=== PATIENT | female | born 1935 | race African-American/Black ===

== ENCOUNTER 2020-08-25 23:23 | Inpatient (IN) ==
[2020-08-26 00:20] LABS: INR 1.4; PT Patient Result 14.6 SECS (9.8-11.9); Partial Thromboplastin Time 27.7 SECS (23.9-33.8)
[2020-08-26 00:30] LABS: Bilirubin,Total 0.4 MG/DL (0.2-1.0); Calcium 9.2 MG/DL (8.5-10.1); Osmolality,Calculated 283.1 MOS/KG (273-304); Potassium 4.8 MMOL/L (3.5-5.1); Total Protein 7.5 G/DL (6.4-8.3)
[2020-08-26] MEDS: MORPHINE 4 MG/1 ML VIAL IV PRN ×3 (00:57→15:22)
[2020-08-26] MEDS ORDERED: DEXTROSE 5% 1,000 ML IV SCH (01:00)
[2020-08-26 01:07] LABS: Basophils % 0.2 % (0.0-0.8); Hematocrit 45.2 VOL% (35.7-47.0); Hemoglobin 14.7 GM/DL (12.0-16.0); Immature Granulocytes % 1.3 %; Immature Granulocytes Absolute 0.07 #; Lymphocytes # 0.6 10*3/uL (1.4-4.0); Lymphocytes % 10.1 % (21.3-54.2); Mean Corpuscular HGB Conc 32.5 GM/DL (32-36); Mean Corpuscular Volume 86.8 FL (87-102); Mean Platelet Volume 10.1 FL (9.6-12.0); Monocytes % 12.8 % (1.7-12.7); Neutrophils % 75.6 % (38.7-73.9); Platelet Count 220 T/CUMM (130-400); Red Blood Count 5.21 MC/CUMM (3.8-5.5); Red Cell Distribution Width 15.9 % (9.3-17.3); White Blood Count 5.5 T/CUMM (4-12)
[2020-08-26 06:58] LABS: Basophils % 0.1 % (0.0-0.8); Hematocrit 43.6 VOL% (35.7-47.0); Hemoglobin 14.3 GM/DL (12.0-16.0); Immature Granulocytes % 1.2 %; Lymphocytes % 11.5 % (21.3-54.2); Mean Corpuscular HGB Conc 32.8 GM/DL (32-36); Mean Corpuscular Volume 86.5 FL (87-102); Neutrophils % 75.2 % (38.7-73.9); Platelet Count 203 T/CUMM (130-400); Red Blood Count 5.04 MC/CUMM (3.8-5.5); White Blood Count 8.5 T/CUMM (4-12)
[2020-08-26] MEDS ORDERED: ceFAZolin 2,000 MG in PREMIX 1 EACH IV ONE (07:28)
[2020-08-26 07:29] LABS: Albumin 2.8 G/DL (3.4-5.0); Bilirubin,Total 1.4 MG/DL (0.2-1.0); Calcium 9.1 MG/DL (8.5-10.1); Osmolality,Calculated 284.8 MOS/KG (273-304); Potassium 4.3 MMOL/L (3.5-5.1)
[2020-08-26] MEDS ORDERED: fentaNYL 100 MCG/2 ML VIAL ONE ×2 (08:53→09:47)
[2020-08-26] MEDS ORDERED: DEXAMETHASONE 4 MG/1 ML VIAL ONE ×2 (09:23)
[2020-08-26] MEDS ORDERED: ONDANSETRON 4 MG/2 ML VIAL ONE (09:25)
[2020-08-26] MEDS ORDERED: propofoL 200 MG/20 ML VIAL IV ONE (09:27)
[2020-08-26] MEDS ORDERED: GLUCAGON 1 MG VIAL IM PRN (09:28)
[2020-08-26] MEDS ORDERED: DEXTROSE 50% 25 GM/50 ML VIAL IV PRN (09:28)
[2020-08-26] MEDS ORDERED: MAGNESIUM HYDROXIDE SUSP 30 ML UDCUP PO PRN (09:29)
[2020-08-26] MEDS ORDERED: MORPHINE 4 MG/1 ML VIAL IV PRN (09:29)
[2020-08-26] MEDS ORDERED: PHENYLEPHRINE 10 MG/1 ML VIAL IV ONE (09:40)
[2020-08-26] MEDS ORDERED: GLYCOPYRROLATE 0.4 MG/2 ML VIAL ONE (09:43)
[2020-08-26] MEDS ORDERED: BACITRACIN OINT 0.9 GM PACK TOP ONE (09:44)
[2020-08-26] MEDS ORDERED: TRANEXAMIC ACID 1,000 MG/10 ML VIAL ONE (09:46)
[2020-08-26] MEDS ORDERED: LIDOCAINE 2% 5 ML VIAL ONE (09:46)
[2020-08-26] MEDS ORDERED: ETOMIDATE 40 MG/20 ML VIAL IV ONE (09:46)
[2020-08-26] MEDS ORDERED: SUCCINYLCHOLINE 200 MG/10 ML VIAL ONE (09:46)
[2020-08-26] MEDS ORDERED: ACETAMINOPHEN 1,000 MG/100 ML VIAL IV ONE (09:50)
[2020-08-26] MEDS ORDERED: SEVOFLURANE 1 UNIT/15 MINUTE INH ONE (10:16)
[2020-08-26] MEDS: LACTATED RINGERS 1,000 ML IV SCH ×2 (12:17→22:02)
[2020-08-26] MEDS: PANTOPRAZOLE 40 MG VIAL IV SCH (12:17)
[2020-08-26] MEDS: INSULIN LISPRO 100 UNIT/ML SUBCUT SCH ×3 (12:21→22:05)
[2020-08-26] MEDS: ONDANSETRON 4 MG/2 ML VIAL IV PRN ×2 (12:22→18:15)
[2020-08-26] MEDS: ceFAZolin 2,000 MG in PREMIX 1 EACH IV SCH (14:06)
[2020-08-26] MEDS: DOCUSATE SODIUM 100 MG CAPSULE PO SCH (22:03)
[2020-08-26] MEDS: POTASSIUM CHLORIDE 20 MEQ TABLET PO SCH (22:05)
[2020-08-26] MEDS: MEGESTROL 400 MG/10 ML UDCUP PO SCH (22:05)
[2020-08-27] MEDS: ceFAZolin 2,000 MG in PREMIX 1 EACH IV SCH (00:17)
[2020-08-27 06:00] LABS: Hematocrit 36.4 VOL% (35.7-47.0); Hemoglobin 11.5 GM/DL (12.0-16.0); Immature Granulocytes % 0.6 %; Immature Granulocytes Absolute 0.07 #; Lymphocytes # 0.7 10*3/uL (1.4-4.0); Lymphocytes % 6.4 % (21.3-54.2); Mean Corpuscular HGB Conc 31.6 GM/DL (32-36); Mean Corpuscular Volume 88.3 FL (87-102); Mean Platelet Volume 10.5 FL (9.6-12.0); Platelet Count 179 T/CUMM (130-400); Red Blood Count 4.12 MC/CUMM (3.8-5.5); Red Cell Distribution Width 16.1 % (9.3-17.3)
[2020-08-27 06:29] LABS: Calcium 8.1 MG/DL (8.5-10.1); Thyroid Stimulating Hormone 0.412 uIU/ml (0.358-3.74)
[2020-08-27] MEDS: LACTATED RINGERS 1,000 ML IV SCH ×2 (07:32→18:10)
[2020-08-27] MEDS: INSULIN LISPRO 100 UNIT/ML SUBCUT SCH ×4 (08:29→20:57)
[2020-08-27] MEDS ORDERED: LANSOPRAZOLE 30 MG PO SCH (09:00)
[2020-08-27] MEDS: METOPROLOL SUCCINATE XL 25 MG TABLET PO SCH (10:24)
[2020-08-27] MEDS: TRIAMTERENE/HCTZ 37.5-25 MG TABLET PO SCH (10:24)
[2020-08-27] MEDS: LEVOTHYROXINE 25 MCG TABLET PO SCH (10:24)
[2020-08-27] MEDS: MEGESTROL 400 MG/10 ML UDCUP PO SCH ×2 (10:24→20:54)
[2020-08-27] MEDS: amLODIPine 10 MG TABLET PO SCH (10:25)
[2020-08-27] MEDS: DOCUSATE SODIUM 100 MG CAPSULE PO SCH ×2 (10:25→20:54)
[2020-08-27] MEDS: APIXABAN 2.5 MG TABLET PO SCH ×2 (10:25→20:54)
[2020-08-27] MEDS: POTASSIUM CHLORIDE 20 MEQ TABLET PO SCH ×2 (10:25→20:54)
[2020-08-27] MEDS: predniSONE 10 MG TABLET PO SCH (10:26)
[2020-08-27] MEDS: PANTOPRAZOLE 40 MG VIAL IV SCH (10:29)
[2020-08-28] MEDS: LACTATED RINGERS 1,000 ML IV SCH ×3 (03:50→23:03)
[2020-08-28 05:43] LABS: Basophils % 0.1 % (0.0-0.8); Hematocrit 30.7 VOL% (35.7-47.0); Hemoglobin 10.2 GM/DL (12.0-16.0); Immature Granulocytes Absolute 0.09 #; Lymphocytes # 0.9 10*3/uL (1.4-4.0); Mean Corpuscular HGB Conc 33.2 GM/DL (32-36); Mean Corpuscular Volume 86.2 FL (87-102); Mean Platelet Volume 10.4 FL (9.6-12.0); Monocytes % 11.5 % (1.7-12.7); NRBC # 0.03 10*3/uL; Neutrophils % 77.4 % (38.7-73.9); Platelet Count 141 T/CUMM (130-400); Red Blood Count 3.56 MC/CUMM (3.8-5.5); Red Cell Distribution Width 15.8 % (9.3-17.3)
[2020-08-28] MEDS: LEVOTHYROXINE 25 MCG TABLET PO SCH (06:01)
[2020-08-28 06:12] LABS: Osmolality,Calculated 273.1 MOS/KG (273-304); Potassium 4.5 MMOL/L (3.5-5.1)
[2020-08-28] MEDS: INSULIN LISPRO 100 UNIT/ML SUBCUT SCH ×4 (08:34→22:41)
[2020-08-28] MEDS: MEGESTROL 400 MG/10 ML UDCUP PO SCH ×2 (10:05→22:38)
[2020-08-28] MEDS: predniSONE 10 MG TABLET PO SCH (10:06)
[2020-08-28] MEDS: DOCUSATE SODIUM 100 MG CAPSULE PO SCH ×2 (10:06→22:38)
[2020-08-28] MEDS: METOPROLOL SUCCINATE XL 25 MG TABLET PO SCH (10:06)
[2020-08-28] MEDS: amLODIPine 10 MG TABLET PO SCH (10:06)
[2020-08-28] MEDS: TRIAMTERENE/HCTZ 37.5-25 MG TABLET PO SCH (10:06)
[2020-08-28] MEDS: POTASSIUM CHLORIDE 20 MEQ TABLET PO SCH ×2 (10:06→22:38)
[2020-08-28] MEDS: APIXABAN 2.5 MG TABLET PO SCH ×2 (10:06→22:38)
[2020-08-28] MEDS: PANTOPRAZOLE 40 MG VIAL IV SCH (10:11)
[2020-08-28] MEDS: MORPHINE 4 MG/1 ML VIAL IV PRN (18:28)
[2020-08-29] MEDS: LEVOTHYROXINE 25 MCG TABLET PO SCH (06:13)
[2020-08-29] MEDS: TRIAMTERENE/HCTZ 37.5-25 MG TABLET PO SCH (08:30)
[2020-08-29] MEDS: DOCUSATE SODIUM 100 MG CAPSULE PO SCH ×2 (08:30→20:20)
[2020-08-29] MEDS: predniSONE 10 MG TABLET PO SCH (08:30)
[2020-08-29] MEDS: METOPROLOL SUCCINATE XL 25 MG TABLET PO SCH (08:30)
[2020-08-29] MEDS: APIXABAN 2.5 MG TABLET PO SCH ×2 (08:31→20:20)
[2020-08-29] MEDS: POTASSIUM CHLORIDE 20 MEQ TABLET PO SCH ×2 (08:31→20:20)
[2020-08-29] MEDS: amLODIPine 10 MG TABLET PO SCH (08:31)
[2020-08-29] MEDS: PANTOPRAZOLE 40 MG VIAL IV SCH (08:33)
[2020-08-29] MEDS: INSULIN LISPRO 100 UNIT/ML SUBCUT SCH ×4 (08:56→20:21)
[2020-08-29] MEDS: MEGESTROL 400 MG/10 ML UDCUP PO SCH ×2 (10:17→20:20)
[2020-08-29] MEDS: LACTATED RINGERS 1,000 ML IV SCH (10:19)
[2020-08-30 05:33] LABS: Eosinophils # 0.1 10*3/uL (0.0-0.87); Eosinophils % 0.7 % (0.00-10.9); Hematocrit 29.9 VOL% (35.7-47.0); Hemoglobin 9.5 GM/DL (12.0-16.0); Immature Granulocytes % 0.7 %; Immature Granulocytes Absolute 0.06 #; Lymphocytes # 0.9 10*3/uL (1.4-4.0); Lymphocytes % 10.3 % (21.3-54.2); Mean Corpuscular HGB Conc 31.8 GM/DL (32-36); Mean Corpuscular Volume 89.3 FL (87-102); Mean Platelet Volume 10.5 FL (9.6-12.0); Monocytes % 10.1 % (1.7-12.7); Neutrophils % 78.2 % (38.7-73.9); Platelet Count 171 T/CUMM (130-400); Red Blood Count 3.35 MC/CUMM (3.8-5.5); Red Cell Distribution Width 16.3 % (9.3-17.3); White Blood Count 8.9 T/CUMM (4-12)
[2020-08-30 05:50] LABS: Calcium 8.5 MG/DL (8.5-10.1); Osmolality,Calculated 267.4 MOS/KG (273-304); Potassium 4.4 MMOL/L (3.5-5.1)
[2020-08-30] MEDS: LEVOTHYROXINE 25 MCG TABLET PO SCH (06:00)
[2020-08-30] MEDS: INSULIN LISPRO 100 UNIT/ML SUBCUT SCH ×2 (07:12→11:03)
[2020-08-30] MEDS ORDERED: APIXABAN 5 MG TABLET PO SCH (09:00)
[2020-08-30] MEDS: TRIAMTERENE/HCTZ 37.5-25 MG TABLET PO SCH (09:13)
[2020-08-30] MEDS: DOCUSATE SODIUM 100 MG CAPSULE PO SCH (09:13)
[2020-08-30] MEDS: POTASSIUM CHLORIDE 20 MEQ TABLET PO SCH (09:13)
[2020-08-30] MEDS: METOPROLOL SUCCINATE XL 25 MG TABLET PO SCH (09:13)
[2020-08-30] MEDS: MEGESTROL 400 MG/10 ML UDCUP PO SCH (09:14)
[2020-08-30] MEDS: predniSONE 10 MG TABLET PO SCH (09:14)
[2020-08-30] MEDS: amLODIPine 10 MG TABLET PO SCH (09:14)
[2020-08-30] MEDS: PANTOPRAZOLE 40 MG VIAL IV SCH (09:20)
[2020-08-30] MEDS ORDERED: SKIN HEALING OINT (AQUAPHOR) 50 GM TUBE TOP SCH (11:00)
[2020-08-30 11:36] VITALS: BP 113/62
== END 2020-08-30 16:23 | disposition swing bed (61) | DRG 482 ==
LOC: EDBD → EDUNIT# → N.ED 23:23 → N.EDINP 08-26 00:36 → N.3E 08-26 02:44
PROVIDERS: ADMIT Family Medicine; ATTEND Family Medicine

== ENCOUNTER 2020-09-27 09:10 | Inpatient (IN) ==
[2020-09-27 11:44] LABS: Basophils % 0.3 % (0.0-0.8); Eosinophils # 0.1 10*3/uL (0.0-0.87); Eosinophils % 0.9 % (0.00-10.9); Hematocrit 42.5 VOL% (35.7-47.0); Hemoglobin 13.2 GM/DL (12.0-16.0); Immature Granulocytes % 1.5 %; Lymphocytes # 0.5 10*3/uL (1.4-4.0); Lymphocytes % 7.2 % (21.3-54.2); Mean Corpuscular HGB Conc 31.1 GM/DL (32-36); Mean Corpuscular Volume 96.2 FL (87-102); Mean Platelet Volume 9.1 FL (9.6-12.0); Monocytes % 8.1 % (1.7-12.7); Platelet Count 189 T/CUMM (130-400); Red Blood Count 4.42 MC/CUMM (3.8-5.5); Red Cell Distribution Width 19.2 % (9.3-17.3); White Blood Count 6.6 T/CUMM (4-12)
[2020-09-27 12:07] LABS: Albumin 2.5 G/DL (3.4-5.0); Calcium 8.8 MG/DL (8.5-10.1); Osmolality,Calculated 273.1 MOS/KG (273-304); Potassium 4.6 MMOL/L (3.5-5.1); Total Protein 6.6 G/DL (5.0-7.5)
[2020-09-27] MEDS ORDERED: GLUCAGON 1 MG VIAL IM PRN (12:16)
[2020-09-27] MEDS ORDERED: DEXTROSE 50% 25 GM/50 ML VIAL IV PRN (12:16)
[2020-09-27 12:26] LABS: Bacteria,Urine Occasional /HPF (Few); Bilirubin,Urine Negative (Negative); Blood, Urine Large mg/dL (Negative); Glucose,Urine (UA) Negative (Negative); Ketones,Urine Negative (Negative); Mucus,Urine Occasional /LPF (Occasional); Nitrite,Urine Negative (Negative); Protein,Urine 30 MG/DL; RBC,Urine 57 /HPF (0-4); Squamous Epithelial Cell,Urine Few /HPF (0-10); Urine Appearance CLEAR (Clear); Urine Color Yellow (Yellow); Urine Specific Gravity 1.021 (1.001-1.035); Urine Urobilinogen < 2.0 EU/DL (0.2-1.0); WBC,Urine 2 /HPF (0-6)
[2020-09-27] MEDS: NYSTATIN 500,000 UNIT/5 ML UDCUP PO SCH ×3 (13:28→20:43)
[2020-09-27] MEDS: VANCOMYCIN INJ 750 MG in SODIUM CHLORIDE 0.9% 250 ML IV SCH (13:28)
[2020-09-27] MEDS: INSULIN LISPRO 100 UNIT/ML SUBCUT SCH ×2 (16:25→21:31)
[2020-09-27] MEDS: MEGESTROL 400 MG/10 ML UDCUP PO SCH (20:43)
[2020-09-27] MEDS: DOCUSATE SODIUM 100 MG CAPSULE PO SCH (20:43)
[2020-09-27] MEDS: LACTATED RINGERS 1,000 ML IV SCH (20:43)
[2020-09-27] MEDS: PIPERACILLIN/TAZOBACTAM 3,375 MG in SODIUM CHLORIDE 0.9% 100 ML IV SCH (20:43)
[2020-09-27] MEDS: TRIAMCINOLONE 0.1% CREAM 15 GM TUBE TOP SCH (21:32)
[2020-09-28 05:16] LABS: Basophils % 0.4 % (0.0-0.8); Eosinophils # 0.1 10*3/uL (0.0-0.87); Eosinophils % 1.4 % (0.00-10.9); Hematocrit 40.9 VOL% (35.7-47.0); Hemoglobin 12.8 GM/DL (12.0-16.0); Immature Granulocytes % 2.1 %; Lymphocytes # 0.7 10*3/uL (1.4-4.0); Lymphocytes % 14.5 % (21.3-54.2); Mean Corpuscular HGB Conc 31.3 GM/DL (32-36); Mean Corpuscular Volume 95.6 FL (87-102); Mean Platelet Volume 9.3 FL (9.6-12.0); Monocytes % 8.7 % (1.7-12.7); Neutrophils % 72.9 % (38.7-73.9); Platelet Count 160 T/CUMM (130-400); Red Blood Count 4.28 MC/CUMM (3.8-5.5); Red Cell Distribution Width 19.6 % (9.3-17.3); White Blood Count 4.8 T/CUMM (4-12)
[2020-09-28] MEDS: PIPERACILLIN/TAZOBACTAM 3,375 MG in SODIUM CHLORIDE 0.9% 100 ML IV SCH ×3 (05:27→21:40)
[2020-09-28 05:59] LABS: Albumin 2.3 G/DL (3.4-5.0); Calcium 8.7 MG/DL (8.5-10.1); Potassium 4.3 MMOL/L (3.5-5.1); Thyroid Stimulating Hormone 2.04 uIU/ml (0.358-3.74); Total Protein 5.9 G/DL (5.0-7.5)
[2020-09-28] MEDS: PANTOPRAZOLE 40 MG TABLET PO SCH (07:54)
[2020-09-28] MEDS: INSULIN LISPRO 100 UNIT/ML SUBCUT SCH ×4 (07:55→21:39)
[2020-09-28] MEDS: LEVOTHYROXINE 25 MCG TABLET PO SCH (07:55)
[2020-09-28] MEDS ORDERED: ZALEPLON 5 MG CAPSULE PO PRN (07:58)
[2020-09-28] MEDS: DEXTROSE 5% LACTATED RINGERS 1,000 ML IV SCH (09:30)
[2020-09-28] MEDS: VANCOMYCIN INJ 750 MG in SODIUM CHLORIDE 0.9% 250 ML IV SCH (09:36)
[2020-09-28] MEDS ORDERED: LIDOCAINE 2% 5 ML VIAL ONE (12:10)
[2020-09-28] MEDS ORDERED: fentaNYL 100 MCG/2 ML VIAL ONE (12:10)
[2020-09-28] MEDS ORDERED: propofoL 200 MG/20 ML VIAL IV ONE (12:10)
[2020-09-28] MEDS ORDERED: DEXAMETHASONE 4 MG/1 ML VIAL ONE (12:10)
[2020-09-28] MEDS ORDERED: SEVOFLURANE 1 UNIT/15 MINUTE INH ONE ×4 (12:10→13:41)
[2020-09-28] MEDS ORDERED: ONDANSETRON 4 MG/2 ML VIAL ONE (12:10)
[2020-09-28] MEDS: DOCUSATE SODIUM 100 MG CAPSULE PO SCH ×2 (12:22→21:37)
[2020-09-28] MEDS: NYSTATIN 500,000 UNIT/5 ML UDCUP PO SCH ×4 (12:22→21:38)
[2020-09-28] MEDS: POTASSIUM CHLORIDE 20 MEQ TABLET PO SCH (12:22)
[2020-09-28] MEDS: MEGESTROL 400 MG/10 ML UDCUP PO SCH ×2 (12:22→21:38)
[2020-09-28] MEDS: predniSONE 10 MG TABLET PO SCH (12:22)
[2020-09-28] MEDS: METOPROLOL SUCCINATE XL 25 MG TABLET PO SCH (12:23)
[2020-09-28] MEDS: LACTATED RINGERS 1,000 ML IV SCH (12:24)
[2020-09-28] MEDS ORDERED: LACTATED RINGERS 1,000 ML IV SCH (13:00)
[2020-09-28] MEDS ORDERED: PHENYLEPHRINE 1 MG/10 ML SYRINGE IV ONE (13:41)
[2020-09-28] MEDS ORDERED: MORPHINE 4 MG/1 ML VIAL IV PRN (13:46)
[2020-09-28] MEDS: MENTHOL/ZINC OXIDE OINT 71 GM JAR TOP SCH ×2 (16:48→21:38)
[2020-09-28] MEDS: TRIAMCINOLONE 0.1% CREAM 15 GM TUBE TOP SCH ×2 (17:50→21:38)
[2020-09-29] MEDS: DEXTROSE 5% LACTATED RINGERS 1,000 ML IV SCH ×5 (04:57→19:53)
[2020-09-29] MEDS: VANCOMYCIN INJ 1,000 MG in SODIUM CHLORIDE 0.9% 250 ML IV SCH (06:09)
[2020-09-29] MEDS: LEVOTHYROXINE 25 MCG TABLET PO SCH (06:10)
[2020-09-29] MEDS: PANTOPRAZOLE 40 MG TABLET PO SCH (06:10)
[2020-09-29] MEDS: INSULIN LISPRO 100 UNIT/ML SUBCUT SCH ×4 (08:26→23:38)
[2020-09-29] MEDS: PIPERACILLIN/TAZOBACTAM 3,375 MG in SODIUM CHLORIDE 0.9% 100 ML IV SCH ×3 (09:57→23:41)
[2020-09-29] MEDS: POTASSIUM CHLORIDE 20 MEQ TABLET PO SCH (09:58)
[2020-09-29] MEDS: amLODIPine 5 MG TABLET PO SCH (09:58)
[2020-09-29] MEDS: METOPROLOL SUCCINATE XL 25 MG TABLET PO SCH (09:58)
[2020-09-29] MEDS: MEGESTROL 400 MG/10 ML UDCUP PO SCH ×2 (09:59→21:55)
[2020-09-29] MEDS: DOCUSATE SODIUM 100 MG CAPSULE PO SCH ×2 (09:59→21:55)
[2020-09-29] MEDS: predniSONE 10 MG TABLET PO SCH (09:59)
[2020-09-29] MEDS: NYSTATIN 500,000 UNIT/5 ML UDCUP PO SCH ×4 (09:59→21:55)
[2020-09-29] MEDS: TRIAMCINOLONE 0.1% CREAM 15 GM TUBE TOP SCH ×2 (10:00→21:50)
[2020-09-29] MEDS: MENTHOL/ZINC OXIDE OINT 71 GM JAR TOP SCH ×2 (10:00→21:55)
[2020-09-30] MEDS: VANCOMYCIN INJ 1,000 MG in SODIUM CHLORIDE 0.9% 250 ML IV SCH (05:25)
[2020-09-30] MEDS: LEVOTHYROXINE 25 MCG TABLET PO SCH (05:33)
[2020-09-30] MEDS: PANTOPRAZOLE 40 MG TABLET PO SCH (05:33)
[2020-09-30 06:06] LABS: Basophils % 0.2 % (0.0-0.8); Eosinophils # 0.1 10*3/uL (0.0-0.87); Eosinophils % 1.1 % (0.00-10.9); Hematocrit 37.2 VOL% (35.7-47.0); Hemoglobin 11.4 GM/DL (12.0-16.0); Immature Granulocytes % 3.2 %; Immature Granulocytes Absolute 0.14 #; Lymphocytes # 0.5 10*3/uL (1.4-4.0); Lymphocytes % 11.9 % (21.3-54.2); Mean Corpuscular HGB Conc 30.6 GM/DL (32-36); Mean Corpuscular Volume 97.6 FL (87-102); Mean Platelet Volume 9.3 FL (9.6-12.0); Monocytes % 6.9 % (1.7-12.7); Neutrophils % 76.7 % (38.7-73.9); Platelet Count 160 T/CUMM (130-400); Red Blood Count 3.81 MC/CUMM (3.8-5.5); White Blood Count 4.4 T/CUMM (4-12)
[2020-09-30 06:31] LABS: Calcium 7.8 MG/DL (8.5-10.1); Osmolality,Calculated 274.7 MOS/KG (273-304); Potassium 3.7 MMOL/L (3.5-5.1)
[2020-09-30] MEDS: METOPROLOL SUCCINATE XL 25 MG TABLET PO SCH (08:30)
[2020-09-30] MEDS: MEGESTROL 400 MG/10 ML UDCUP PO SCH ×2 (08:30→22:17)
[2020-09-30] MEDS: NYSTATIN 500,000 UNIT/5 ML UDCUP PO SCH ×4 (08:30→22:18)
[2020-09-30] MEDS: amLODIPine 5 MG TABLET PO SCH (08:30)
[2020-09-30] MEDS: INSULIN LISPRO 100 UNIT/ML SUBCUT SCH ×4 (08:31→22:18)
[2020-09-30] MEDS: POTASSIUM CHLORIDE 20 MEQ TABLET PO SCH (08:32)
[2020-09-30] MEDS: predniSONE 10 MG TABLET PO SCH (08:32)
[2020-09-30] MEDS: DOCUSATE SODIUM 100 MG CAPSULE PO SCH ×2 (08:32→22:17)
[2020-09-30] MEDS: TRIAMCINOLONE 0.1% CREAM 15 GM TUBE TOP SCH ×2 (11:31→22:19)
[2020-09-30] MEDS: APIXABAN 2.5 MG TABLET PO SCH ×2 (11:31→22:17)
[2020-09-30] MEDS: MENTHOL/ZINC OXIDE OINT 71 GM JAR TOP SCH ×2 (11:31→22:17)
[2020-10-01] MEDS: VANCOMYCIN INJ 1,000 MG in SODIUM CHLORIDE 0.9% 250 ML IV SCH (05:34)
[2020-10-01] MEDS: PANTOPRAZOLE 40 MG TABLET PO SCH (05:35)
[2020-10-01] MEDS: LEVOTHYROXINE 25 MCG TABLET PO SCH (05:35)
[2020-10-01] MEDS: INSULIN LISPRO 100 UNIT/ML SUBCUT SCH ×4 (08:45→20:42)
[2020-10-01] MEDS: amLODIPine 5 MG TABLET PO SCH (08:48)
[2020-10-01] MEDS: MEGESTROL 400 MG/10 ML UDCUP PO SCH ×2 (08:48→21:59)
[2020-10-01] MEDS: METOPROLOL SUCCINATE XL 25 MG TABLET PO SCH (08:48)
[2020-10-01] MEDS: NYSTATIN 500,000 UNIT/5 ML UDCUP PO SCH ×4 (08:48→21:59)
[2020-10-01] MEDS: APIXABAN 2.5 MG TABLET PO SCH ×2 (08:48→21:58)
[2020-10-01] MEDS: DOCUSATE SODIUM 100 MG CAPSULE PO SCH ×2 (08:49→21:58)
[2020-10-01] MEDS: predniSONE 10 MG TABLET PO SCH (08:49)
[2020-10-01] MEDS: MENTHOL/ZINC OXIDE OINT 71 GM JAR TOP SCH ×2 (11:17→21:59)
[2020-10-01] MEDS: TRIAMCINOLONE 0.1% CREAM 15 GM TUBE TOP SCH ×2 (11:17→22:00)
[2020-10-01] MEDS: POTASSIUM CHLORIDE 20 MEQ TABLET PO SCH (12:22)
[2020-10-02 05:45] LABS: Basophils % 0.5 % (0.0-0.8); Eosinophils # 0.1 10*3/uL (0.0-0.87); Eosinophils % 2.3 % (0.00-10.9); Hematocrit 37.4 VOL% (35.7-47.0); Hemoglobin 11.6 GM/DL (12.0-16.0); Immature Granulocytes % 1.8 %; Immature Granulocytes Absolute 0.08 #; Lymphocytes # 0.6 10*3/uL (1.4-4.0); Mean Corpuscular Volume 96.6 FL (87-102); Mean Platelet Volume 9.5 FL (9.6-12.0); Monocytes % 5.9 % (1.7-12.7); Neutrophils % 75.5 % (38.7-73.9); Platelet Count 172 T/CUMM (130-400); Red Blood Count 3.87 MC/CUMM (3.8-5.5); Red Cell Distribution Width 19.3 % (9.3-17.3); White Blood Count 4.4 T/CUMM (4-12)
[2020-10-02] MEDS: VANCOMYCIN INJ 1,000 MG in SODIUM CHLORIDE 0.9% 250 ML IV SCH (05:48)
[2020-10-02] MEDS: PANTOPRAZOLE 40 MG TABLET PO SCH (05:48)
[2020-10-02] MEDS: LEVOTHYROXINE 25 MCG TABLET PO SCH (05:48)
[2020-10-02 06:01] LABS: Calcium 8.4 MG/DL (8.5-10.1); Osmolality,Calculated 273.7 MOS/KG (273-304); Potassium 3.7 MMOL/L (3.5-5.1)
[2020-10-02] MEDS: INSULIN LISPRO 100 UNIT/ML SUBCUT SCH ×4 (08:41→21:20)
[2020-10-02] MEDS: TRIAMCINOLONE 0.1% CREAM 15 GM TUBE TOP SCH ×2 (08:42→21:59)
[2020-10-02] MEDS: MENTHOL/ZINC OXIDE OINT 71 GM JAR TOP SCH ×2 (08:42→21:27)
[2020-10-02] MEDS: NYSTATIN 500,000 UNIT/5 ML UDCUP PO SCH ×4 (08:43→21:26)
[2020-10-02] MEDS: POTASSIUM CHLORIDE 20 MEQ TABLET PO SCH (08:43)
[2020-10-02] MEDS: MEGESTROL 400 MG/10 ML UDCUP PO SCH ×2 (08:43→21:26)
[2020-10-02] MEDS: DOCUSATE SODIUM 100 MG CAPSULE PO SCH ×2 (08:44→21:26)
[2020-10-02] MEDS: amLODIPine 5 MG TABLET PO SCH (08:44)
[2020-10-02] MEDS: METOPROLOL SUCCINATE XL 25 MG TABLET PO SCH (08:44)
[2020-10-02] MEDS: APIXABAN 2.5 MG TABLET PO SCH ×2 (08:44→21:27)
[2020-10-02] MEDS: predniSONE 10 MG TABLET PO SCH (08:45)
[2020-10-03] MEDS: LEVOTHYROXINE 25 MCG TABLET PO SCH (05:40)
[2020-10-03] MEDS: PANTOPRAZOLE 40 MG TABLET PO SCH (05:40)
[2020-10-03] MEDS: VANCOMYCIN INJ 1,000 MG in SODIUM CHLORIDE 0.9% 250 ML IV SCH (05:41)
[2020-10-03] MEDS: INSULIN LISPRO 100 UNIT/ML SUBCUT SCH ×2 (07:52→11:42)
[2020-10-03] MEDS ORDERED: methylPREDNISolone SOD SUC 40 MG/1 ML VIAL IV SCH (09:00)
[2020-10-03] MEDS: TRIAMCINOLONE 0.1% CREAM 15 GM TUBE TOP SCH (09:15)
[2020-10-03] MEDS: predniSONE 10 MG TABLET PO SCH (09:16)
[2020-10-03] MEDS: MEGESTROL 400 MG/10 ML UDCUP PO SCH (09:16)
[2020-10-03] MEDS: DOCUSATE SODIUM 100 MG CAPSULE PO SCH (09:16)
[2020-10-03] MEDS: MENTHOL/ZINC OXIDE OINT 71 GM JAR TOP SCH (09:16)
[2020-10-03] MEDS: NYSTATIN 500,000 UNIT/5 ML UDCUP PO SCH ×2 (09:16→12:38)
[2020-10-03] MEDS: amLODIPine 5 MG TABLET PO SCH (09:16)
[2020-10-03] MEDS: METOPROLOL SUCCINATE XL 25 MG TABLET PO SCH (09:16)
[2020-10-03] MEDS: POTASSIUM CHLORIDE 20 MEQ TABLET PO SCH (09:16)
[2020-10-03] MEDS: APIXABAN 2.5 MG TABLET PO SCH (09:17)
[2020-10-03 12:12] VITALS: BP 122/69
== END 2020-10-03 14:30 | disposition swing bed (61) | DRG 858 ==
LOC: N.5E 10:04 → N.3E 13:51
PROVIDERS: ADMIT Orthopaedic Surgery; ATTEND Orthopaedic Surgery

== ENCOUNTER 2020-10-09 20:26 | Inpatient (IN) ==
[2020-10-09] MEDS ORDERED: SODIUM CHLORIDE 0.9% 1,000 ML IV STA ×2 (20:51→21:40)
[2020-10-09 20:54] LABS: Basophils % 0.6 % (0.0-0.8); Eosinophils # 0.2 10*3/uL (0.0-0.87); Eosinophils % 3.8 % (0.00-10.9); Hematocrit 37.2 VOL% (35.7-47.0); Hemoglobin 11.6 GM/DL (12.0-16.0); Immature Granulocytes % 2.7 %; Immature Granulocytes Absolute 0.13 #; Lymphocytes # 0.6 10*3/uL (1.4-4.0); Lymphocytes % 13.2 % (21.3-54.2); Mean Corpuscular HGB Conc 31.2 GM/DL (32-36); Mean Corpuscular Volume 96.1 FL (87-102); Mean Platelet Volume 9.5 FL (9.6-12.0); Monocytes % 5.8 % (1.7-12.7); Neutrophils % 73.9 % (38.7-73.9); Platelet Count 204 T/CUMM (130-400); Red Blood Count 3.87 MC/CUMM (3.8-5.5); Red Cell Distribution Width 18.2 % (9.3-17.3); White Blood Count 4.8 T/CUMM (4-12)
[2020-10-09 21:06] LABS: Bacteria,Urine Occasional /HPF (Few); Bilirubin,Urine Negative (Negative); Blood, Urine Negative (Negative); Glucose,Urine (UA) Negative (Negative); Ketones,Urine Negative (Negative); Mucus,Urine Many /LPF (Occasional); Nitrite,Urine Negative (Negative); Protein,Urine 30 MG/DL; RBC,Urine 3 /HPF (0-4); Squamous Epithelial Cell,Urine Occasional /HPF (0-10); Urine Appearance Slightly Hazy (Clear); Urine Color Amber (Yellow); WBC,Urine 3 /HPF (0-6)
[2020-10-09 21:14] LABS: Bilirubin,Total 0.8 MG/DL (0.2-1.0); Calcium 7.6 MG/DL (8.5-10.1); Osmolality,Calculated 280.3 MOS/KG (273-304); Potassium 3.6 MMOL/L (3.5-5.1); Total Protein 5.1 G/DL (5.0-7.5)
[2020-10-09] MEDS ORDERED: LEVOFLOXACIN INJ 500 MG in PREMIX 1 EACH IV STA (23:24)
[2020-10-10 02:33] LABS: Albumin 1.8 G/DL (3.4-5.0); Bilirubin,Total 0.8 MG/DL (0.2-1.0); Calcium 7.6 MG/DL (8.5-10.1); Osmolality,Calculated 271.8 MOS/KG (273-304); Potassium 3.5 MMOL/L (3.5-5.1); Total Protein 5.5 G/DL (5.0-7.5)
[2020-10-10] MEDS: MORPHINE 4 MG/1 ML VIAL IV PRN (02:49)
[2020-10-10] MEDS: DEXTROSE 5% NACL 0.45% 1,000 ML IV SCH ×2 (02:51→09:38)
[2020-10-10] MEDS ORDERED: MAGNESIUM SULF RIDER 2 GM in PREMIX 1 EACH IV ONE (08:02)
[2020-10-10] MEDS: predniSONE 10 MG TABLET PO SCH (09:02)
[2020-10-10] MEDS: MEGESTROL 400 MG/10 ML UDCUP PO SCH ×2 (09:02→20:49)
[2020-10-10] MEDS: METOPROLOL SUCCINATE XL 25 MG TABLET PO SCH (09:02)
[2020-10-10] MEDS: POTASSIUM CHLORIDE 20 MEQ TABLET PO SCH (09:02)
[2020-10-10] MEDS: APIXABAN 2.5 MG TABLET PO SCH ×2 (09:03→20:49)
[2020-10-10] MEDS: PANTOPRAZOLE 40 MG VIAL IV SCH (09:03)
[2020-10-10] MEDS: ASCORBIC ACID 500 MG TABLET PO SCH ×2 (09:37→20:49)
[2020-10-10] MEDS: [UNRECOGNIZED DRUG - OTHER] IV SCH (16:48)
[2020-10-10] MEDS: SKIN HEALING OINT (AQUAPHOR) 50 GM TUBE TOP SCH (16:48)
[2020-10-10] MEDS: POTASSIUM CHLORIDE IV SCH (16:48)
[2020-10-10] MEDS: MAGNESIUM SULF IV SCH (16:48)
[2020-10-10] MEDS ORDERED: LEVOFLOXACIN INJ 500 MG in PREMIX 1 EACH IV SCH (21:00)
[2020-10-11] MEDS ORDERED: METOPROLOL TARTRATE 5 MG/5 ML VIAL IV PRN (05:19)
[2020-10-11 06:19] LABS: Albumin 1.6 G/DL (3.4-5.0); Basophils % 0.4 % (0.0-0.8); Bilirubin,Total 0.9 MG/DL (0.2-1.0); Calcium 7.5 MG/DL (8.5-10.1); Eosinophils # 0.1 10*3/uL (0.0-0.87); Eosinophils % 2.2 % (0.00-10.9); Hematocrit 39.2 VOL% (35.7-47.0); Hemoglobin 11.9 GM/DL (12.0-16.0); Immature Granulocytes % 1.3 %; Immature Granulocytes Absolute 0.07 #; Lymphocytes # 0.6 10*3/uL (1.4-4.0); Lymphocytes % 11.6 % (21.3-54.2); Mean Corpuscular HGB Conc 30.4 GM/DL (32-36); Mean Corpuscular Volume 99.7 FL (87-102); Mean Platelet Volume 10.1 FL (9.6-12.0); Monocytes % 5.1 % (1.7-12.7); Neutrophils % 79.4 % (38.7-73.9); Osmolality,Calculated 269.8 MOS/KG (273-304); Platelet Count 172 T/CUMM (130-400); Potassium 3.7 MMOL/L (3.5-5.1); Red Blood Count 3.93 MC/CUMM (3.8-5.5); Red Cell Distribution Width 17.9 % (9.3-17.3); Thyroid Stimulating Hormone 1.18 uIU/ml (0.358-3.74); Total Protein 5.2 G/DL (6.4-8.2); White Blood Count 5.5 T/CUMM (4-12)
[2020-10-11] MEDS: LEVOTHYROXINE 25 MCG TABLET PO SCH (06:43)
[2020-10-11] MEDS ORDERED: DEXTROSE 50% 25 GM/50 ML VIAL IV ONE (06:45)
[2020-10-11] MEDS: POTASSIUM CHLORIDE IV SCH ×3 (07:09→20:29)
[2020-10-11] MEDS: MAGNESIUM SULF IV SCH ×3 (07:09→20:29)
[2020-10-11] MEDS: [UNRECOGNIZED DRUG - OTHER] IV SCH ×3 (07:09→20:29)
[2020-10-11] MEDS ORDERED: VANCOMYCIN INJ 1,500 MG in SODIUM CHLORIDE 0.9% 500 ML IV ONE (08:00)
[2020-10-11] MEDS ORDERED: cefTRIAXone 1,000 MG VIAL IM SCH (08:00)
[2020-10-11] MEDS: amLODIPine 5 MG TABLET PO SCH (08:33)
[2020-10-11] MEDS: SKIN HEALING OINT (AQUAPHOR) 50 GM TUBE TOP SCH (08:33)
[2020-10-11] MEDS: MEGESTROL 400 MG/10 ML UDCUP PO SCH (08:33)
[2020-10-11] MEDS: APIXABAN 2.5 MG TABLET PO SCH (08:33)
[2020-10-11] MEDS: POTASSIUM CHLORIDE 20 MEQ TABLET PO SCH (08:33)
[2020-10-11] MEDS: PANTOPRAZOLE 40 MG VIAL IV SCH (08:34)
[2020-10-11] MEDS: METOPROLOL SUCCINATE XL 25 MG TABLET PO SCH (08:34)
[2020-10-11] MEDS: predniSONE 10 MG TABLET PO SCH (08:34)
[2020-10-11] MEDS: ASCORBIC ACID 500 MG TABLET PO SCH ×2 (08:34→21:23)
[2020-10-11] MEDS ORDERED: ENOXAPARIN 100 MG/ML SYRINGE SUBCUT SCH (10:00)
[2020-10-11] MEDS: METOPROLOL TARTRATE 5 MG/5 ML VIAL IV SCH ×3 (10:59→21:23)
[2020-10-11] MEDS: PIPERACILLIN/TAZOBACTAM 3,375 MG in SODIUM CHLORIDE 0.9% 100 ML IV SCH ×2 (11:00→17:46)
[2020-10-11] MEDS: INSULIN LISPRO 100 UNIT/ML SUBCUT SCH ×3 (12:40→21:23)
[2020-10-11] MEDS: ENOXAPARIN 80 MG/0.8 ML SYRINGE SUBCUT SCH (13:34)
[2020-10-11] MEDS: MORPHINE 4 MG/1 ML VIAL IV PRN (13:35)
[2020-10-11] MEDS ORDERED: HYDROCORTISONE 100 MG VIAL IV ONE (14:47)
[2020-10-11] MEDS: VANCOMYCIN INJ 1,250 MG in SODIUM CHLORIDE 0.9% 250 ML IV SCH (21:23)
[2020-10-12 02:06] LABS: Basophils % 0.4 % (0.0-0.8); Eosinophils % 0.2 % (0.00-10.9); Hematocrit 32.8 VOL% (35.7-47.0); Hemoglobin 10.4 GM/DL (12.0-16.0); Immature Granulocytes % 1.1 %; Immature Granulocytes Absolute 0.05 #; Lymphocytes # 0.4 10*3/uL (1.4-4.0); Lymphocytes % 8.5 % (21.3-54.2); Mean Corpuscular HGB Conc 31.7 GM/DL (32-36); Mean Platelet Volume 9.3 FL (9.6-12.0); Monocytes % 5.2 % (1.7-12.7); Neutrophils % 84.6 % (38.7-73.9); Platelet Count 165 T/CUMM (130-400); Red Blood Count 3.49 MC/CUMM (3.8-5.5); Red Cell Distribution Width 17.4 % (9.3-17.3); White Blood Count 4.6 T/CUMM (4-12)
[2020-10-12 02:31] LABS: Albumin 1.4 G/DL (3.4-5.0); Bilirubin,Total 1.3 MG/DL (0.2-1.0); Calcium 7.2 MG/DL (8.5-10.1); Potassium 3.2 MMOL/L (3.5-5.1); Total Protein 4.5 G/DL (6.4-8.2)
[2020-10-12 03:13] LABS: Sedimentation Rate-Westergren 65 MM/HR (0-30)
[2020-10-12] MEDS: PIPERACILLIN/TAZOBACTAM 3,375 MG in SODIUM CHLORIDE 0.9% 100 ML IV SCH ×2 (03:25→15:00)
[2020-10-12] MEDS: METOPROLOL TARTRATE 5 MG/5 ML VIAL IV SCH ×4 (04:19→21:44)
[2020-10-12] MEDS: LEVOTHYROXINE 25 MCG TABLET PO SCH (05:37)
[2020-10-12] MEDS ORDERED: HYDROCORTISONE 100 MG VIAL IV ONE (07:47)
[2020-10-12] MEDS: INSULIN LISPRO 100 UNIT/ML SUBCUT SCH ×4 (10:34→21:56)
[2020-10-12] MEDS: ENOXAPARIN 80 MG/0.8 ML SYRINGE SUBCUT SCH (10:42)
[2020-10-12] MEDS: PANTOPRAZOLE 40 MG VIAL IV SCH (10:42)
[2020-10-12] MEDS: POTASSIUM CHLORIDE RIDER 10 MEQ in PREMIX 1 EACH IV SCH ×3 (10:45→16:13)
[2020-10-12] MEDS: SKIN HEALING OINT (AQUAPHOR) 50 GM TUBE TOP SCH (12:50)
[2020-10-12] MEDS: VANCOMYCIN INJ 1,250 MG in SODIUM CHLORIDE 0.9% 250 ML IV SCH ×2 (12:50→21:43)
[2020-10-12] MEDS: predniSONE 10 MG TABLET PO SCH ×2 (14:59→15:19)
[2020-10-12] MEDS: amLODIPine 5 MG TABLET PO SCH ×2 (14:59→15:18)
[2020-10-12] MEDS: POTASSIUM CHLORIDE 20 MEQ TABLET PO SCH ×2 (14:59→15:17)
[2020-10-12] MEDS: ASCORBIC ACID 500 MG TABLET PO SCH ×3 (15:00→21:44)
[2020-10-12] MEDS ORDERED: POTASSIUM CHLORIDE RIDER 10 MEQ in PREMIX 1 EACH IV SCH (16:00)
[2020-10-12] MEDS: DEXT 5% NACL 0.45% KCL 20 MEQ 20 MEQ/1,000 ML BAG IV SCH ×2 (18:35→18:36)
[2020-10-13 03:33] LABS: Basophils % 0.2 % (0.0-0.8); Eosinophils % 0.2 % (0.00-10.9); Hematocrit 33.4 VOL% (35.7-47.0); Hemoglobin 10.4 GM/DL (12.0-16.0); Immature Granulocytes % 1.2 %; Immature Granulocytes Absolute 0.05 #; Lymphocytes # 0.4 10*3/uL (1.4-4.0); Lymphocytes % 9.5 % (21.3-54.2); Mean Corpuscular HGB Conc 31.1 GM/DL (32-36); Mean Corpuscular Volume 97.1 FL (87-102); Mean Platelet Volume 11.6 FL (9.6-12.0); Monocytes % 5.6 % (1.7-12.7); Neutrophils % 83.3 % (38.7-73.9); Platelet Count 221 T/CUMM (130-400); Red Blood Count 3.44 MC/CUMM (3.8-5.5); Red Cell Distribution Width 19.1 % (9.3-17.3); White Blood Count 4.1 T/CUMM (4-12)
[2020-10-13] MEDS: DEXT 5% NACL 0.45% KCL 20 MEQ 20 MEQ/1,000 ML BAG IV SCH ×3 (03:33→19:36)
[2020-10-13] MEDS: PIPERACILLIN/TAZOBACTAM 3,375 MG in SODIUM CHLORIDE 0.9% 100 ML IV SCH ×3 (03:33→19:09)
[2020-10-13] MEDS: METOPROLOL TARTRATE 5 MG/5 ML VIAL IV SCH ×4 (03:35→22:23)
[2020-10-13] MEDS: LEVOTHYROXINE 25 MCG TABLET PO SCH (06:15)
[2020-10-13 07:01] LABS: Albumin 1.6 G/DL (3.4-5.0); Bilirubin,Total 0.9 MG/DL (0.2-1.0); Calcium 7.2 MG/DL (8.5-10.1); Potassium 2.7 MMOL/L (3.5-5.1); Total Protein 4.7 G/DL (6.4-8.2)
[2020-10-13] MEDS: VANCOMYCIN INJ 1,250 MG in SODIUM CHLORIDE 0.9% 250 ML IV SCH ×2 (07:47→22:25)
[2020-10-13] MEDS: INSULIN LISPRO 100 UNIT/ML SUBCUT SCH ×4 (10:14→22:24)
[2020-10-13] MEDS: SKIN HEALING OINT (AQUAPHOR) 50 GM TUBE TOP SCH (10:41)
[2020-10-13] MEDS: ACETAMINOPHEN 325 MG TABLET PO PRN (10:42)
[2020-10-13] MEDS: ENOXAPARIN 80 MG/0.8 ML SYRINGE SUBCUT SCH (10:43)
[2020-10-13] MEDS: PANTOPRAZOLE 40 MG VIAL IV SCH (10:43)
[2020-10-13] MEDS: amLODIPine 5 MG TABLET PO SCH (10:44)
[2020-10-13] MEDS: predniSONE 10 MG TABLET PO SCH (10:44)
[2020-10-13] MEDS: POTASSIUM CHLORIDE 20 MEQ TABLET PO SCH (12:08)
[2020-10-13] MEDS: ASCORBIC ACID 500 MG TABLET PO SCH ×2 (12:09→22:23)
[2020-10-13] MEDS: POTASSIUM CHLORIDE RIDER 10 MEQ in PREMIX 1 EACH IV SCH ×3 (14:00→19:15)
[2020-10-14] MEDS: PIPERACILLIN/TAZOBACTAM 3,375 MG in SODIUM CHLORIDE 0.9% 100 ML IV SCH ×3 (03:01→17:32)
[2020-10-14] MEDS: DEXT 5% NACL 0.45% KCL 20 MEQ 20 MEQ/1,000 ML BAG IV SCH ×4 (03:57→21:44)
[2020-10-14] MEDS: METOPROLOL TARTRATE 5 MG/5 ML VIAL IV SCH ×4 (03:58→21:45)
[2020-10-14] MEDS: LEVOTHYROXINE 25 MCG TABLET PO SCH (06:15)
[2020-10-14] MEDS: MAGNESIUM SULF IV SCH (07:09)
[2020-10-14] MEDS: [UNRECOGNIZED DRUG - OTHER] IV SCH (07:09)
[2020-10-14] MEDS: POTASSIUM CHLORIDE IV SCH (07:09)
[2020-10-14] MEDS: INSULIN LISPRO 100 UNIT/ML SUBCUT SCH ×4 (07:54→20:38)
[2020-10-14] MEDS: ASCORBIC ACID 500 MG TABLET PO SCH ×2 (09:15→20:37)
[2020-10-14] MEDS: POTASSIUM CHLORIDE 20 MEQ TABLET PO SCH ×2 (09:15→20:37)
[2020-10-14] MEDS: amLODIPine 5 MG TABLET PO SCH (09:15)
[2020-10-14] MEDS: predniSONE 10 MG TABLET PO SCH (09:15)
[2020-10-14] MEDS: SKIN HEALING OINT (AQUAPHOR) 50 GM TUBE TOP SCH (09:16)
[2020-10-14] MEDS: PANTOPRAZOLE 40 MG VIAL IV SCH (09:16)
[2020-10-14 09:21] LABS: Basophils % 0.3 % (0.0-0.8); Eosinophils # 0.1 10*3/uL (0.0-0.87); Eosinophils % 1.3 % (0.00-10.9); Hematocrit 34.7 VOL% (35.7-47.0); Hemoglobin 10.8 GM/DL (12.0-16.0); Immature Granulocytes % 2.3 %; Immature Granulocytes Absolute 0.14 #; Lymphocytes # 0.7 10*3/uL (1.4-4.0); Lymphocytes % 11.7 % (21.3-54.2); Mean Corpuscular HGB Conc 31.1 GM/DL (32-36); Mean Corpuscular Volume 94.3 FL (87-102); Mean Platelet Volume 9.7 FL (9.6-12.0); Monocytes % 7.4 % (1.7-12.7); NRBC # 0.03 10*3/uL; Platelet Count 200 T/CUMM (130-400); Red Blood Count 3.68 MC/CUMM (3.8-5.5); Red Cell Distribution Width 17.4 % (9.3-17.3); White Blood Count 6.1 T/CUMM (4-12)
[2020-10-14] MEDS: ENOXAPARIN 80 MG/0.8 ML SYRINGE SUBCUT SCH (09:30)
[2020-10-14 09:43] LABS: Eosinophils 2 % (0-10); Lymphocytes 10 % (20-55); Nucleated Red Blood Cells 1 (0-5); Segmented Neutrophils 85 % (50-85); Total Cells Counted 100
[2020-10-14 09:44] LABS: Hypochromasia 1+; Microcytosis 1+
[2020-10-14 09:45] LABS: Platelet Estimate Normal
[2020-10-14 09:47] LABS: Calcium 7.5 MG/DL (8.5-10.1); Osmolality,Calculated 278.1 MOS/KG (273-304); Potassium 2.9 MMOL/L (3.5-5.1)
[2020-10-14] MEDS ORDERED: MAGNESIUM SULF RIDER 2 GM in PREMIX 1 EACH IV ONE (12:21)
[2020-10-14] MEDS: VANCOMYCIN INJ 1,250 MG in SODIUM CHLORIDE 0.9% 250 ML IV SCH (21:59)
[2020-10-15 01:17] LABS: Basophils % 0.3 % (0.0-0.8); Eosinophils # 0.1 10*3/uL (0.0-0.87); Eosinophils % 1.1 % (0.00-10.9); Hematocrit 36.7 VOL% (35.7-47.0); Hemoglobin 11.5 GM/DL (12.0-16.0); Immature Granulocytes % 2.6 %; Immature Granulocytes Absolute 0.17 #; Lymphocytes # 0.8 10*3/uL (1.4-4.0); Lymphocytes % 12.7 % (21.3-54.2); Mean Corpuscular HGB Conc 31.3 GM/DL (32-36); Mean Corpuscular Volume 94.8 FL (87-102); Mean Platelet Volume 9.7 FL (9.6-12.0); Monocytes % 4.7 % (1.7-12.7); Neutrophils % 78.6 % (38.7-73.9); Platelet Count 219 T/CUMM (130-400); Red Blood Count 3.87 MC/CUMM (3.8-5.5); Red Cell Distribution Width 17.5 % (9.3-17.3); White Blood Count 6.6 T/CUMM (4-12)
[2020-10-15 01:43] LABS: Calcium 7.4 MG/DL (8.5-10.1); Osmolality,Calculated 273.5 MOS/KG (273-304); Potassium 2.6 MMOL/L (3.5-5.1)
[2020-10-15] MEDS: PIPERACILLIN/TAZOBACTAM 3,375 MG in SODIUM CHLORIDE 0.9% 100 ML IV SCH ×3 (02:39→18:01)
[2020-10-15] MEDS: METOPROLOL TARTRATE 5 MG/5 ML VIAL IV SCH ×4 (04:21→22:01)
[2020-10-15] MEDS: LEVOTHYROXINE 25 MCG TABLET PO SCH (05:30)
[2020-10-15] MEDS: DEXT 5% NACL 0.45% KCL 20 MEQ 20 MEQ/1,000 ML BAG IV SCH ×3 (06:19→22:20)
[2020-10-15] MEDS: INSULIN LISPRO 100 UNIT/ML SUBCUT SCH ×4 (07:57→20:01)
[2020-10-15] MEDS: CHOLECALCIFEROL 1,000 UNIT TABLET PO SCH (08:41)
[2020-10-15] MEDS: amLODIPine 10 MG TABLET PO SCH (08:42)
[2020-10-15] MEDS: predniSONE 10 MG TABLET PO SCH (08:42)
[2020-10-15] MEDS: ASCORBIC ACID 500 MG TABLET PO SCH ×2 (08:42→20:01)
[2020-10-15] MEDS: POTASSIUM CHLORIDE 20 MEQ TABLET PO SCH ×2 (08:42→20:01)
[2020-10-15] MEDS: SKIN HEALING OINT (AQUAPHOR) 50 GM TUBE TOP SCH (08:43)
[2020-10-15] MEDS: PANTOPRAZOLE 40 MG VIAL IV SCH (08:43)
[2020-10-15] MEDS: POTASSIUM CHLORIDE RIDER 10 MEQ in PREMIX 1 EACH IV PRN ×5 (08:45→14:16)
[2020-10-15] MEDS: ENOXAPARIN 80 MG/0.8 ML SYRINGE SUBCUT SCH (10:33)
[2020-10-15] MEDS ORDERED: HYDROCORTISONE 100 MG VIAL IV ONE (16:08)
[2020-10-15] MEDS: VANCOMYCIN INJ 1,250 MG in SODIUM CHLORIDE 0.9% 250 ML IV SCH (16:54)
[2020-10-15] MEDS: APIXABAN 2.5 MG TABLET PO SCH (20:00)
[2020-10-15] MEDS: MEGESTROL 400 MG/10 ML UDCUP PO SCH (20:01)
[2020-10-16] MEDS: PIPERACILLIN/TAZOBACTAM 3,375 MG in SODIUM CHLORIDE 0.9% 100 ML IV SCH ×3 (03:05→18:39)
[2020-10-16] MEDS: METOPROLOL TARTRATE 5 MG/5 ML VIAL IV SCH ×4 (05:10→22:01)
[2020-10-16] MEDS: LEVOTHYROXINE 25 MCG TABLET PO SCH (05:52)
[2020-10-16] MEDS: DEXT 5% NACL 0.45% KCL 20 MEQ 20 MEQ/1,000 ML BAG IV SCH ×2 (06:35→16:41)
[2020-10-16 06:56] LABS: Basophils % 0.2 % (0.0-0.8); Hematocrit 34.1 VOL% (35.7-47.0); Hemoglobin 10.8 GM/DL (12.0-16.0); Immature Granulocytes Absolute 0.18 #; Lymphocytes # 0.6 10*3/uL (1.4-4.0); Lymphocytes % 10.5 % (21.3-54.2); Mean Corpuscular HGB Conc 31.7 GM/DL (32-36); Mean Corpuscular Volume 94.5 FL (87-102); Mean Platelet Volume 9.6 FL (9.6-12.0); Monocytes % 5.6 % (1.7-12.7); Neutrophils % 80.7 % (38.7-73.9); Platelet Count 195 T/CUMM (130-400); Red Blood Count 3.61 MC/CUMM (3.8-5.5); Red Cell Distribution Width 17.6 % (9.3-17.3); White Blood Count 6.1 T/CUMM (4-12)
[2020-10-16 07:27] LABS: Calcium 7.5 MG/DL (8.5-10.1); Osmolality,Calculated 279.3 MOS/KG (273-304); Potassium 3.2 MMOL/L (3.5-5.1)
[2020-10-16] MEDS: CHOLECALCIFEROL 1,000 UNIT TABLET PO SCH (09:14)
[2020-10-16] MEDS: PANTOPRAZOLE 40 MG VIAL IV SCH (09:16)
[2020-10-16] MEDS: SKIN HEALING OINT (AQUAPHOR) 50 GM TUBE TOP SCH (09:18)
[2020-10-16] MEDS: VANCOMYCIN INJ 1,250 MG in SODIUM CHLORIDE 0.9% 250 ML IV SCH (09:31)
[2020-10-16] MEDS: INSULIN LISPRO 100 UNIT/ML SUBCUT SCH ×4 (09:31→22:00)
[2020-10-16] MEDS: predniSONE 10 MG TABLET PO SCH (09:53)
[2020-10-16] MEDS: MEGESTROL 400 MG/10 ML UDCUP PO SCH ×2 (09:53→22:00)
[2020-10-16] MEDS: POTASSIUM CHLORIDE 20 MEQ TABLET PO SCH ×2 (09:53→22:00)
[2020-10-16] MEDS: amLODIPine 10 MG TABLET PO SCH (09:53)
[2020-10-16] MEDS: APIXABAN 2.5 MG TABLET PO SCH ×2 (09:53→22:00)
[2020-10-16] MEDS: ASCORBIC ACID 500 MG TABLET PO SCH ×2 (09:53→22:01)
[2020-10-16 10:43] LABS: Atypical Lymphocytes Few; Lymphocytes 2 % (20-55); Metamyelocytes 1 %; Platelet Estimate Adequate; Polychromasia Slight; Segmented Neutrophils 95 % (50-85); Total Cells Counted 100
[2020-10-16] MEDS ORDERED: FUROSEMIDE 40 MG/4 ML VIAL IV ONE (15:31)
[2020-10-16 15:41] LABS: ABG Base Excess -3.1 MMOL/L (-2.5-2.5); ABG Oxygen Saturation 99.4 % (95-100); ABG PCO2 22.3 MM HG (35-48); ABG PH 7.524 (7.35-7.45); ABG PO2 349.3 MM HG (80-95); ABG TCO2 18.7 MMOL/L (23-27); Allen Test Positive
[2020-10-16] MEDS: POTASSIUM CHLORIDE RIDER 10 MEQ in PREMIX 1 EACH IV PRN ×3 (16:50→22:01)
[2020-10-17] MEDS: DEXT 5% NACL 0.45% KCL 20 MEQ 20 MEQ/1,000 ML BAG IV SCH ×3 (01:54→17:21)
[2020-10-17] MEDS: PIPERACILLIN/TAZOBACTAM 3,375 MG in SODIUM CHLORIDE 0.9% 100 ML IV SCH ×3 (01:55→19:25)
[2020-10-17 02:57] LABS: Basophils % 0.5 % (0.0-0.8); Eosinophils # 0.1 10*3/uL (0.0-0.87); Eosinophils % 1.3 % (0.00-10.9); Hematocrit 36.8 VOL% (35.7-47.0); Hemoglobin 11.5 GM/DL (12.0-16.0); Immature Granulocytes % 2.5 %; Immature Granulocytes Absolute 0.19 #; Lymphocytes # 0.9 10*3/uL (1.4-4.0); Lymphocytes % 11.3 % (21.3-54.2); Mean Corpuscular HGB Conc 31.3 GM/DL (32-36); Mean Corpuscular Volume 94.8 FL (87-102); Mean Platelet Volume 9.9 FL (9.6-12.0); Monocytes % 7.2 % (1.7-12.7); NRBC # 0.02 10*3/uL; Neutrophils % 77.2 % (38.7-73.9); Platelet Count 225 T/CUMM (130-400); Red Blood Count 3.88 MC/CUMM (3.8-5.5); Red Cell Distribution Width 17.9 % (9.3-17.3); White Blood Count 7.6 T/CUMM (4-12)
[2020-10-17 03:14] LABS: Calcium 7.7 MG/DL (8.5-10.1); Osmolality,Calculated 284.7 MOS/KG (273-304); Potassium 3.3 MMOL/L (3.5-5.1)
[2020-10-17] MEDS: METOPROLOL TARTRATE 5 MG/5 ML VIAL IV SCH ×4 (04:00→21:52)
[2020-10-17 05:18] LABS: Band Neutrophils 5 % (0-10); Hypochromasia 1+; Lymphocytes 10 % (20-55); Metamyelocytes 1 %; Microcytosis 1+; Ovalocytes Slight; Segmented Neutrophils 75 % (50-85); Total Cells Counted 100
[2020-10-17 05:28] LABS: Platelet Estimate Normal
[2020-10-17] MEDS: LEVOTHYROXINE 25 MCG TABLET PO SCH (05:49)
[2020-10-17] MEDS: MAGNESIUM SULF RIDER 2 GM in PREMIX 1 EACH IV PRN (08:09)
[2020-10-17] MEDS: INSULIN LISPRO 100 UNIT/ML SUBCUT SCH ×4 (08:27→21:51)
[2020-10-17] MEDS: SKIN HEALING OINT (AQUAPHOR) 50 GM TUBE TOP SCH (10:15)
[2020-10-17] MEDS: VANCOMYCIN INJ 1,250 MG in SODIUM CHLORIDE 0.9% 250 ML IV SCH (10:52)
[2020-10-17] MEDS: PANTOPRAZOLE 40 MG VIAL IV SCH (11:10)
[2020-10-17] MEDS: APIXABAN 2.5 MG TABLET PO SCH ×2 (11:10→21:51)
[2020-10-17] MEDS: MEGESTROL 400 MG/10 ML UDCUP PO SCH ×2 (11:22→21:52)
[2020-10-17] MEDS: POTASSIUM CHLORIDE 20 MEQ TABLET PO SCH ×2 (11:22→21:51)
[2020-10-17] MEDS: predniSONE 10 MG TABLET PO SCH (11:23)
[2020-10-17] MEDS: amLODIPine 10 MG TABLET PO SCH (11:23)
[2020-10-17] MEDS: ASCORBIC ACID 500 MG TABLET PO SCH ×2 (11:23→21:52)
[2020-10-17] MEDS: CHOLECALCIFEROL 1,000 UNIT TABLET PO SCH (11:24)
[2020-10-17] MEDS: NYSTATIN 500,000 UNIT/5 ML UDCUP SWISH/SWAL SCH ×2 (16:40→21:52)
[2020-10-18] MEDS: DEXT 5% NACL 0.45% KCL 20 MEQ 20 MEQ/1,000 ML BAG IV SCH ×4 (00:01→22:00)
[2020-10-18] MEDS: PIPERACILLIN/TAZOBACTAM 3,375 MG in SODIUM CHLORIDE 0.9% 100 ML IV SCH ×3 (02:18→20:38)
[2020-10-18] MEDS: METOPROLOL TARTRATE 5 MG/5 ML VIAL IV SCH ×4 (03:56→21:47)
[2020-10-18] MEDS: LEVOTHYROXINE 25 MCG TABLET PO SCH (06:00)
[2020-10-18] MEDS: INSULIN LISPRO 100 UNIT/ML SUBCUT SCH ×4 (10:00→20:53)
[2020-10-18] MEDS: SKIN HEALING OINT (AQUAPHOR) 50 GM TUBE TOP SCH (10:55)
[2020-10-18] MEDS: PANTOPRAZOLE 40 MG VIAL IV SCH (12:25)
[2020-10-18] MEDS: VANCOMYCIN INJ 1,250 MG in SODIUM CHLORIDE 0.9% 250 ML IV SCH (12:34)
[2020-10-18] MEDS: MEGESTROL 400 MG/10 ML UDCUP PO SCH ×2 (16:10→20:54)
[2020-10-18] MEDS: NYSTATIN 500,000 UNIT/5 ML UDCUP SWISH/SWAL SCH ×4 (16:15→20:54)
[2020-10-18] MEDS: APIXABAN 2.5 MG TABLET PO SCH ×2 (17:04→20:53)
[2020-10-18] MEDS: POTASSIUM CHLORIDE 20 MEQ TABLET PO SCH ×2 (17:04→20:54)
[2020-10-18] MEDS: ASCORBIC ACID 500 MG TABLET PO SCH ×2 (17:06→20:54)
[2020-10-18] MEDS: predniSONE 10 MG TABLET PO SCH (17:06)
[2020-10-18] MEDS: CHOLECALCIFEROL 1,000 UNIT TABLET PO SCH (17:07)
[2020-10-19] MEDS: METOPROLOL TARTRATE 5 MG/5 ML VIAL IV SCH ×4 (04:28→21:55)
[2020-10-19 05:19] LABS: Basophils % 0.4 % (0.0-0.8); Eosinophils % 0.2 % (0.00-10.9); Hematocrit 33.1 VOL% (35.7-47.0); Hemoglobin 10.9 GM/DL (12.0-16.0); Immature Granulocytes % 1.2 %; Immature Granulocytes Absolute 0.12 #; Lymphocytes # 0.9 10*3/uL (1.4-4.0); Lymphocytes % 9.5 % (21.3-54.2); Mean Corpuscular HGB Conc 32.9 GM/DL (32-36); Mean Corpuscular Volume 91.4 FL (87-102); Mean Platelet Volume 10.5 FL (9.6-12.0); Monocytes % 5.7 % (1.7-12.7); Platelet Count 142 T/CUMM (130-400); Red Blood Count 3.62 MC/CUMM (3.8-5.5); Red Cell Distribution Width 17.2 % (9.3-17.3); White Blood Count 9.8 T/CUMM (4-12)
[2020-10-19 05:23] LABS: INR 1.7; PT Patient Result 18.2 SECS (9.8-11.9)
[2020-10-19 05:39] LABS: Calcium 7.4 MG/DL (8.5-10.1); Osmolality,Calculated 287.6 MOS/KG (273-304)
[2020-10-19 05:41] LABS: Band Neutrophils 1 % (0-10); Hypochromasia Slight; Lymphocytes 5 % (20-55); Platelet Estimate Adequate; Potassium 2.5 MMOL/L (3.5-5.1); Segmented Neutrophils 91 % (50-85); Total Cells Counted 100
[2020-10-19 05:42] LABS: Microcytosis Slight
[2020-10-19] MEDS: DEXT 5% NACL 0.45% KCL 20 MEQ 20 MEQ/1,000 ML BAG IV SCH ×3 (05:46→17:26)
[2020-10-19] MEDS: LEVOTHYROXINE 25 MCG TABLET PO SCH (06:10)
[2020-10-19] MEDS: POTASSIUM CHLORIDE RIDER 10 MEQ in PREMIX 1 EACH IV PRN ×5 (06:11→10:42)
[2020-10-19] MEDS ORDERED: HYDROCORTISONE 100 MG VIAL IV ONE (08:06)
[2020-10-19] MEDS: PANTOPRAZOLE 40 MG VIAL IV SCH (08:46)
[2020-10-19] MEDS: INSULIN LISPRO 100 UNIT/ML SUBCUT SCH ×4 (09:00→21:56)
[2020-10-19] MEDS ORDERED: POTASSIUM CHLORIDE RIDER 10 MEQ in PREMIX 1 EACH IV SCH (09:00)
[2020-10-19] MEDS: LINEZOLID INJ 600 MG in PREMIX 1 EACH IV SCH ×2 (09:01→21:55)
[2020-10-19] MEDS: APIXABAN 2.5 MG TABLET PO SCH ×2 (09:01→21:56)
[2020-10-19] MEDS: SKIN HEALING OINT (AQUAPHOR) 50 GM TUBE TOP SCH (09:01)
[2020-10-19] MEDS: NYSTATIN 500,000 UNIT/5 ML UDCUP SWISH/SWAL SCH ×4 (09:01→21:56)
[2020-10-19] MEDS: POTASSIUM CHLORIDE 20 MEQ TABLET PO SCH ×2 (09:01→21:56)
[2020-10-19] MEDS: MEGESTROL 400 MG/10 ML UDCUP PO SCH ×2 (09:01→21:55)
[2020-10-19] MEDS: predniSONE 10 MG TABLET PO SCH (09:01)
[2020-10-19] MEDS: CHOLECALCIFEROL 1,000 UNIT TABLET PO SCH (09:02)
[2020-10-19] MEDS: ASCORBIC ACID 500 MG TABLET PO SCH ×2 (09:02→21:56)
[2020-10-19] MEDS: VANCOMYCIN INJ 1,250 MG in SODIUM CHLORIDE 0.9% 250 ML IV SCH (09:03)
[2020-10-19] MEDS: LACTATED RINGERS 1,000 ML IV SCH (12:27)
[2020-10-19] MEDS ORDERED: LIDOCAINE 2% 5 ML VIAL ONE (15:23)
[2020-10-19] MEDS ORDERED: propofoL 200 MG/20 ML VIAL IV ONE (15:23)
[2020-10-19] MEDS ORDERED: PHENYLEPHRINE 1 MG/10 ML SYRINGE IV ONE ×2 (15:43→15:51)
[2020-10-20] MEDS: DEXT 5% NACL 0.45% KCL 20 MEQ 20 MEQ/1,000 ML BAG IV SCH ×2 (01:38→06:14)
[2020-10-20] MEDS: METOPROLOL TARTRATE 5 MG/5 ML VIAL IV SCH ×3 (04:02→16:34)
[2020-10-20 06:10] LABS: Basophils % 0.2 % (0.0-0.8); Hematocrit 34.2 VOL% (35.7-47.0); Immature Granulocytes % 1.1 %; Immature Granulocytes Absolute 0.14 #; Lymphocytes # 1.5 10*3/uL (1.4-4.0); Lymphocytes % 11.4 % (21.3-54.2); Mean Corpuscular HGB Conc 32.2 GM/DL (32-36); Mean Corpuscular Volume 92.4 FL (87-102); Mean Platelet Volume 10.6 FL (9.6-12.0); Monocytes % 6.5 % (1.7-12.7); Neutrophils % 80.8 % (38.7-73.9); Platelet Count 133 T/CUMM (130-400); Red Cell Distribution Width 17.4 % (9.3-17.3); White Blood Count 12.9 T/CUMM (4-12)
[2020-10-20] MEDS: ALBUMIN 25% 25 GM in PREMIX 1 EACH IV SCH ×2 (06:14→14:08)
[2020-10-20] MEDS: LEVOTHYROXINE 25 MCG TABLET PO SCH (06:18)
[2020-10-20 06:32] LABS: Band Neutrophils 1 % (0-10); Hypochromasia Slight; Lymphocytes 5 % (20-55); Microcytosis 1+; Segmented Neutrophils 91 % (50-85); Total Cells Counted 100
[2020-10-20 06:33] LABS: Platelet Estimate Adequate
[2020-10-20 06:35] LABS: Calcium 7.3 MG/DL (8.5-10.1); Osmolality,Calculated 290.1 MOS/KG (273-304); Potassium 3.8 MMOL/L (3.5-5.1)
[2020-10-20] MEDS: INSULIN LISPRO 100 UNIT/ML SUBCUT SCH ×4 (08:43→21:42)
[2020-10-20] MEDS: LACTATED RINGERS 1,000 ML IV SCH (08:43)
[2020-10-20] MEDS: APIXABAN 2.5 MG TABLET PO SCH ×2 (08:45→21:41)
[2020-10-20] MEDS: CHOLECALCIFEROL 1,000 UNIT TABLET PO SCH (08:45)
[2020-10-20] MEDS: PANTOPRAZOLE 40 MG VIAL IV SCH (08:46)
[2020-10-20] MEDS: ASCORBIC ACID 500 MG TABLET PO SCH ×2 (08:46→21:41)
[2020-10-20] MEDS: MEGESTROL 400 MG/10 ML UDCUP PO SCH ×2 (08:46→21:41)
[2020-10-20] MEDS: POTASSIUM CHLORIDE 20 MEQ TABLET PO SCH ×2 (08:46→21:41)
[2020-10-20] MEDS: predniSONE 10 MG TABLET PO SCH (08:47)
[2020-10-20] MEDS: SKIN HEALING OINT (AQUAPHOR) 50 GM TUBE TOP SCH (08:47)
[2020-10-20] MEDS: NYSTATIN 500,000 UNIT/5 ML UDCUP SWISH/SWAL SCH ×4 (08:48→21:29)
[2020-10-20] MEDS: LINEZOLID INJ 600 MG in PREMIX 1 EACH IV SCH ×2 (08:57→21:57)
[2020-10-20 16:58] LABS: ABG Base Excess -6.2 MMOL/L (-2.5-2.5); ABG HCO3 19.3 MMOL/L (20-26); ABG Oxygen Saturation 98.6 % (95-100); ABG PH 7.503 (7.35-7.45); ABG PO2 97.8 MM HG (80-95); ABG TCO2 14.2 MMOL/L (23-27)
[2020-10-20 17:01] LABS: ABG PCO2 19.8 MM HG (35-48)
[2020-10-20] MEDS ORDERED: SODIUM BICARBONATE 50 MEQ/50 ML VIAL IV ONE (17:05)
[2020-10-20] MEDS: MAGNESIUM SULF RIDER 2 GM in PREMIX 1 EACH IV PRN (17:34)
[2020-10-20] MEDS ORDERED: POTASSIUM PHOSPHATE 30 MMOL in SODIUM CHLORIDE 0.9% 250 ML IV ONE (18:00)
[2020-10-20] MEDS: SODIUM BICARB INJ 100 MEQ in SODIUM CHLORIDE 0.45% 1,000 ML IV SCH (19:45)
[2020-10-20] MEDS: METOPROLOL TARTRATE 25 MG TABLET PO SCH (21:41)
[2020-10-21] MEDS: ALBUMIN 25% 25 GM in PREMIX 1 EACH IV SCH ×2 (02:00→09:07)
[2020-10-21 04:20] LABS: Allen Test Positive
[2020-10-21 04:21] LABS: ABG Base Excess -4.1 MMOL/L (-2.5-2.5); ABG Oxygen Saturation 95.7 % (95-100); ABG PCO2 23.3 MM HG (35-48); ABG PH 7.495 (7.35-7.45); ABG TCO2 16.4 MMOL/L (23-27)
[2020-10-21] MEDS ORDERED: LABETALOL 20 MG/4 ML SYRINGE IV ONE (05:23)
[2020-10-21] MEDS: SODIUM BICARB INJ 100 MEQ in SODIUM CHLORIDE 0.45% 1,000 ML IV SCH ×4 (05:31→20:50)
[2020-10-21] MEDS: LEVOTHYROXINE 25 MCG TABLET PO SCH (06:05)
[2020-10-21] MEDS: ALBUTEROL 0.63 MG/3 ML NEB RESP TX SCH ×3 (08:18→19:11)
[2020-10-21] MEDS: INSULIN LISPRO 100 UNIT/ML SUBCUT SCH ×4 (08:20→22:29)
[2020-10-21] MEDS: LINEZOLID INJ 600 MG in PREMIX 1 EACH IV SCH ×2 (08:21→20:32)
[2020-10-21] MEDS ORDERED: FUROSEMIDE 40 MG/4 ML VIAL IV ONE (08:24)
[2020-10-21 08:32] LABS: Albumin 2.9 G/DL (3.4-5.0); Bilirubin,Total 1.2 MG/DL (0.2-1.0); Calcium 7.9 MG/DL (8.5-10.1); Total Protein 5.5 G/DL (6.4-8.2)
[2020-10-21] MEDS: predniSONE 10 MG TABLET PO SCH (08:44)
[2020-10-21] MEDS: MEGESTROL 400 MG/10 ML UDCUP PO SCH ×2 (08:44→20:31)
[2020-10-21] MEDS: ZINC OXIDE PASTE 113 GM TUBE TOP SCH ×2 (08:44→20:32)
[2020-10-21] MEDS: POTASSIUM CHLORIDE 20 MEQ TABLET PO SCH ×2 (08:45→20:32)
[2020-10-21] MEDS: CHOLECALCIFEROL 1,000 UNIT TABLET PO SCH (08:45)
[2020-10-21] MEDS: APIXABAN 2.5 MG TABLET PO SCH ×2 (08:45→20:32)
[2020-10-21] MEDS: ASCORBIC ACID 500 MG TABLET PO SCH ×2 (08:45→20:32)
[2020-10-21] MEDS: NYSTATIN 500,000 UNIT/5 ML UDCUP SWISH/SWAL SCH ×4 (08:45→20:32)
[2020-10-21] MEDS: METOPROLOL TARTRATE 25 MG TABLET PO SCH ×3 (08:45→20:32)
[2020-10-21] MEDS: PANTOPRAZOLE 40 MG VIAL IV SCH (08:46)
[2020-10-21 08:55] LABS: Basophils % 0.2 % (0.0-0.8); Eosinophils % 0.2 % (0.00-10.9); Hematocrit 32.6 VOL% (35.7-47.0); Hemoglobin 9.9 GM/DL (12.0-16.0); Immature Granulocytes % 2.1 %; Immature Granulocytes Absolute 0.26 #; Lymphocytes # 1.2 10*3/uL (1.4-4.0); Lymphocytes % 9.9 % (21.3-54.2); Mean Corpuscular HGB Conc 30.4 GM/DL (32-36); Mean Corpuscular Volume 97.9 FL (87-102); Mean Platelet Volume 11.7 FL (9.6-12.0); Monocytes % 6.6 % (1.7-12.7); NRBC # 0.04 10*3/uL; Platelet Count 123 T/CUMM (130-400); Red Blood Count 3.33 MC/CUMM (3.8-5.5); Red Cell Distribution Width 17.6 % (9.3-17.3); White Blood Count 12.2 T/CUMM (4-12)
[2020-10-21] MEDS: SKIN HEALING OINT (AQUAPHOR) 50 GM TUBE TOP SCH (09:08)
[2020-10-21 09:22] LABS: Anisocytosis 2+; Band Neutrophils 14 % (0-10); Burr Cells Few; Lymphocytes 7 % (20-55); Macrocytosis 1+; Nucleated Red Blood Cells 1 (0-5); Platelet Estimate Adequate; Segmented Neutrophils 74 % (50-85); Smudge Cells Few; Total Cells Counted 100
[2020-10-21 09:23] LABS: Tear Drop Cells Few
[2020-10-22] MEDS: ALBUTEROL 0.63 MG/3 ML NEB RESP TX SCH ×4 (01:36→19:22)
[2020-10-22] MEDS: ACETAMINOPHEN 325 MG TABLET PO PRN (01:54)
[2020-10-22 04:21] LABS: Basophils % 0.2 % (0.0-0.8); Eosinophils % 0.2 % (0.00-10.9); Hematocrit 25.8 VOL% (35.7-47.0); Hemoglobin 8.4 GM/DL (12.0-16.0); Immature Granulocytes % 1.4 %; Immature Granulocytes Absolute 0.13 #; Lymphocytes # 0.8 10*3/uL (1.4-4.0); Lymphocytes % 8.2 % (21.3-54.2); Mean Corpuscular HGB Conc 32.6 GM/DL (32-36); Mean Corpuscular Volume 90.5 FL (87-102); Mean Platelet Volume 10.4 FL (9.6-12.0); Monocytes % 4.6 % (1.7-12.7); NRBC # 0.03 10*3/uL; Neutrophils % 85.4 % (38.7-73.9); Platelet Count 109 T/CUMM (130-400); Red Blood Count 2.85 MC/CUMM (3.8-5.5); Red Cell Distribution Width 17.2 % (9.3-17.3); White Blood Count 9.3 T/CUMM (4-12)
[2020-10-22 04:44] LABS: Albumin 2.5 G/DL (3.4-5.0); Bilirubin,Total 0.9 MG/DL (0.2-1.0); Osmolality,Calculated 292.6 MOS/KG (273-304); Potassium 2.6 MMOL/L (3.5-5.1); Total Protein 4.3 G/DL (6.4-8.2)
[2020-10-22 04:50] LABS: Lymphocytes 7 % (20-55); Platelet Estimate Decreased; Segmented Neutrophils 91 % (50-85); Total Cells Counted 100
[2020-10-22 04:51] LABS: Hypochromasia 1+; Macrocytosis Slight
[2020-10-22] MEDS: SODIUM BICARB INJ 100 MEQ in SODIUM CHLORIDE 0.45% 1,000 ML IV SCH ×3 (05:13→14:24)
[2020-10-22] MEDS: POTASSIUM CHLORIDE RIDER 10 MEQ in PREMIX 1 EACH IV PRN ×5 (05:40→09:33)
[2020-10-22] MEDS: LEVOTHYROXINE 25 MCG TABLET PO SCH (05:56)
[2020-10-22] MEDS: INSULIN LISPRO 100 UNIT/ML SUBCUT SCH ×4 (07:15→20:58)
[2020-10-22] MEDS: SKIN HEALING OINT (AQUAPHOR) 50 GM TUBE TOP SCH (08:19)
[2020-10-22] MEDS: ZINC OXIDE PASTE 113 GM TUBE TOP SCH ×2 (08:19→20:57)
[2020-10-22] MEDS: MEGESTROL 400 MG/10 ML UDCUP PO SCH ×2 (08:20→20:57)
[2020-10-22] MEDS: LINEZOLID INJ 600 MG in PREMIX 1 EACH IV SCH ×2 (08:20→20:56)
[2020-10-22] MEDS: NYSTATIN 500,000 UNIT/5 ML UDCUP SWISH/SWAL SCH ×4 (08:20→20:57)
[2020-10-22] MEDS: METOPROLOL TARTRATE 25 MG TABLET PO SCH ×3 (08:21→20:57)
[2020-10-22] MEDS: ASCORBIC ACID 500 MG TABLET PO SCH ×2 (08:21→20:58)
[2020-10-22] MEDS: POTASSIUM CHLORIDE 20 MEQ TABLET PO SCH ×2 (08:21→20:57)
[2020-10-22] MEDS: predniSONE 10 MG TABLET PO SCH (08:21)
[2020-10-22] MEDS: PANTOPRAZOLE 40 MG VIAL IV SCH (08:21)
[2020-10-22] MEDS: CHOLECALCIFEROL 1,000 UNIT TABLET PO SCH (08:21)
[2020-10-22] MEDS: APIXABAN 2.5 MG TABLET PO SCH ×2 (08:21→20:57)
[2020-10-22] MEDS ORDERED: FUROSEMIDE 40 MG/4 ML VIAL IV ONE (09:00)
[2020-10-22] MEDS ORDERED: POTASSIUM PHOSPHATE 30 MMOL in SODIUM CHLORIDE 0.9% 250 ML IV ONE (09:00)
[2020-10-22] MEDS: MAGNESIUM SULF RIDER 2 GM in PREMIX 1 EACH IV PRN (10:49)
[2020-10-22] MEDS ORDERED: KETOROLAC 15 MG/1 ML VIAL IV ONE (14:45)
[2020-10-22] MEDS ORDERED: DOCUSATE SODIUM 100 MG CAPSULE PO SCH (21:00)
[2020-10-23] MEDS: ALBUTEROL 0.63 MG/3 ML NEB RESP TX SCH ×4 (00:44→19:10)
[2020-10-23 05:53] LABS: Basophils % 0.1 % (0.0-0.8); Eosinophils % 0.2 % (0.00-10.9); Hemoglobin 9.6 GM/DL (12.0-16.0); Immature Granulocytes % 1.7 %; Immature Granulocytes Absolute 0.16 #; Lymphocytes # 0.9 10*3/uL (1.4-4.0); Lymphocytes % 9.1 % (21.3-54.2); Mean Corpuscular Volume 89.8 FL (87-102); Mean Platelet Volume 11.3 FL (9.6-12.0); Monocytes % 4.3 % (1.7-12.7); NRBC # 0.03 10*3/uL; Neutrophils % 84.6 % (38.7-73.9); Platelet Count 142 T/CUMM (130-400); Red Blood Count 3.34 MC/CUMM (3.8-5.5); White Blood Count 9.7 T/CUMM (4-12)
[2020-10-23] MEDS: LEVOTHYROXINE 25 MCG TABLET PO SCH (06:08)
[2020-10-23 06:17] LABS: Albumin 2.4 G/DL (3.4-5.0); Bilirubin,Total 1.3 MG/DL (0.2-1.0); Calcium 7.7 MG/DL (8.5-10.1); Osmolality,Calculated 289.3 MOS/KG (273-304); Potassium 3.6 MMOL/L (3.5-5.1)
[2020-10-23 06:18] LABS: Hypochromasia Slight; Lymphocytes 12 % (20-55); Platelet Estimate Normal; Segmented Neutrophils 85 % (50-85); Total Cells Counted 100
[2020-10-23] MEDS: APIXABAN 2.5 MG TABLET PO SCH ×2 (08:50→21:00)
[2020-10-23] MEDS: predniSONE 10 MG TABLET PO SCH (08:50)
[2020-10-23] MEDS: CHOLECALCIFEROL 1,000 UNIT TABLET PO SCH (08:50)
[2020-10-23] MEDS: DOCUSATE SODIUM 100 MG/10 ML UDCUP PO SCH ×2 (08:50→21:00)
[2020-10-23] MEDS: POTASSIUM CHLORIDE 20 MEQ TABLET PO SCH ×2 (08:50→21:01)
[2020-10-23] MEDS: MEGESTROL 400 MG/10 ML UDCUP PO SCH ×2 (08:50→21:00)
[2020-10-23] MEDS: METOPROLOL TARTRATE 25 MG TABLET PO SCH ×3 (08:50→21:00)
[2020-10-23] MEDS: ZINC OXIDE PASTE 113 GM TUBE TOP SCH ×2 (08:50→21:02)
[2020-10-23] MEDS: NYSTATIN 500,000 UNIT/5 ML UDCUP SWISH/SWAL SCH ×4 (08:50→20:59)
[2020-10-23] MEDS: ASCORBIC ACID 500 MG TABLET PO SCH ×2 (08:50→21:00)
[2020-10-23] MEDS: SKIN HEALING OINT (AQUAPHOR) 50 GM TUBE TOP SCH (08:50)
[2020-10-23] MEDS: INSULIN LISPRO 100 UNIT/ML SUBCUT SCH ×4 (09:25→21:01)
[2020-10-23] MEDS: PANTOPRAZOLE 40 MG VIAL IV SCH (09:32)
[2020-10-23] MEDS: LINEZOLID INJ 600 MG in PREMIX 1 EACH IV SCH ×2 (10:29→20:56)
[2020-10-23] MEDS: ACETAMINOPHEN 325 MG TABLET PO PRN (11:05)
[2020-10-24] MEDS: ALBUTEROL 0.63 MG/3 ML NEB RESP TX SCH ×4 (00:45→19:14)
[2020-10-24 05:02] LABS: Basophils % 0.1 % (0.0-0.8); Eosinophils % 0.4 % (0.00-10.9); Hematocrit 28.5 VOL% (35.7-47.0); Hemoglobin 9.3 GM/DL (12.0-16.0); Immature Granulocytes % 1.8 %; Immature Granulocytes Absolute 0.13 #; Lymphocytes # 0.7 10*3/uL (1.4-4.0); Lymphocytes % 9.8 % (21.3-54.2); Mean Corpuscular HGB Conc 32.6 GM/DL (32-36); Mean Corpuscular Volume 90.5 FL (87-102); Mean Platelet Volume 11.4 FL (9.6-12.0); Monocytes % 5.7 % (1.7-12.7); Neutrophils % 82.2 % (38.7-73.9); Platelet Count 151 T/CUMM (130-400); Red Blood Count 3.15 MC/CUMM (3.8-5.5); Red Cell Distribution Width 17.2 % (9.3-17.3); White Blood Count 7.2 T/CUMM (4-12)
[2020-10-24 05:24] LABS: Band Neutrophils 2 % (0-10); Hypochromasia 1+; Lymphocytes 7 % (20-55); Microcytosis 1+; Nucleated Red Blood Cells 2 (0-5); Segmented Neutrophils 89 % (50-85); Total Cells Counted 100
[2020-10-24 05:25] LABS: Ovalocytes Slight; Target Cells Slight
[2020-10-24 05:26] LABS: Anisocytosis 1+; Basophilic Stippling Slight; Platelet Estimate Adequate; Polychromasia Slight
[2020-10-24] MEDS: LEVOTHYROXINE 25 MCG TABLET PO SCH (05:38)
[2020-10-24] MEDS: INSULIN LISPRO 100 UNIT/ML SUBCUT SCH ×4 (07:32→22:02)
[2020-10-24] MEDS: predniSONE 10 MG TABLET PO SCH (08:48)
[2020-10-24] MEDS: DOCUSATE SODIUM 100 MG/10 ML UDCUP PO SCH ×2 (08:48→22:02)
[2020-10-24] MEDS: MEGESTROL 400 MG/10 ML UDCUP PO SCH ×2 (08:48→22:01)
[2020-10-24] MEDS: LINEZOLID INJ 600 MG in PREMIX 1 EACH IV SCH ×2 (08:48→22:04)
[2020-10-24] MEDS: POTASSIUM CHLORIDE 20 MEQ TABLET PO SCH ×2 (08:48→22:05)
[2020-10-24] MEDS: APIXABAN 2.5 MG TABLET PO SCH ×2 (08:48→22:02)
[2020-10-24] MEDS: METOPROLOL TARTRATE 25 MG TABLET PO SCH ×3 (08:48→22:05)
[2020-10-24] MEDS: SKIN HEALING OINT (AQUAPHOR) 50 GM TUBE TOP SCH (08:48)
[2020-10-24] MEDS: NYSTATIN 500,000 UNIT/5 ML UDCUP SWISH/SWAL SCH ×4 (08:48→22:03)
[2020-10-24] MEDS: ZINC OXIDE PASTE 113 GM TUBE TOP SCH ×2 (08:48→22:02)
[2020-10-24] MEDS: CHOLECALCIFEROL 1,000 UNIT TABLET PO SCH (08:49)
[2020-10-24] MEDS: ASCORBIC ACID 500 MG TABLET PO SCH ×2 (08:49→22:01)
[2020-10-24] MEDS: PANTOPRAZOLE 40 MG VIAL IV SCH (08:49)
[2020-10-24] MEDS: ACETAMINOPHEN 325 MG TABLET PO PRN (22:03)
[2020-10-25] MEDS: ALBUTEROL 0.63 MG/3 ML NEB RESP TX SCH ×4 (00:30→19:41)
[2020-10-25] MEDS: LEVOTHYROXINE 25 MCG TABLET PO SCH (05:35)
[2020-10-25 05:39] LABS: Eosinophils # 0.1 10*3/uL (0.0-0.87); Eosinophils % 0.9 % (0.00-10.9); Hemoglobin 9.6 GM/DL (12.0-16.0); Immature Granulocytes % 1.7 %; Lymphocytes # 0.8 10*3/uL (1.4-4.0); Lymphocytes % 13.1 % (21.3-54.2); Mean Corpuscular HGB Conc 33.1 GM/DL (32-36); Mean Corpuscular Volume 90.6 FL (87-102); Mean Platelet Volume 11.5 FL (9.6-12.0); Monocytes % 6.4 % (1.7-12.7); Neutrophils % 77.9 % (38.7-73.9); Platelet Count 141 T/CUMM (130-400); Red Cell Distribution Width 17.3 % (9.3-17.3); White Blood Count 5.8 T/CUMM (4-12)
[2020-10-25 05:59] LABS: Calcium 8.3 MG/DL (8.5-10.1); Osmolality,Calculated 275.2 MOS/KG (273-304); Potassium 4.4 MMOL/L (3.5-5.1)
[2020-10-25 06:18] LABS: Eosinophils 1 % (0-10); Lymphocytes 7 % (20-55); Segmented Neutrophils 88 % (50-85)
[2020-10-25 06:19] LABS: Hypochromasia Slight; Platelet Estimate Normal; Total Cells Counted 100
[2020-10-25] MEDS ORDERED: SODIUM PHOSPHATE IV ONE (08:30)
[2020-10-25] MEDS ORDERED: SODIUM CHLORIDE 0.9% IV ONE (08:30)
[2020-10-25] MEDS: DOCUSATE SODIUM 100 MG/10 ML UDCUP PO SCH ×2 (08:57→21:52)
[2020-10-25] MEDS: NYSTATIN 500,000 UNIT/5 ML UDCUP SWISH/SWAL SCH ×4 (08:57→21:51)
[2020-10-25] MEDS: POTASSIUM CHLORIDE 20 MEQ TABLET PO SCH ×2 (08:57→21:52)
[2020-10-25] MEDS: MEGESTROL 400 MG/10 ML UDCUP PO SCH ×2 (08:57→21:51)
[2020-10-25] MEDS: predniSONE 10 MG TABLET PO SCH (08:58)
[2020-10-25] MEDS: METOPROLOL TARTRATE 25 MG TABLET PO SCH ×3 (08:58→21:53)
[2020-10-25] MEDS: OMEPRAZOLE ODT 20 MG TABLET PER TUBE SCH (08:58)
[2020-10-25] MEDS: APIXABAN 2.5 MG TABLET PO SCH ×2 (08:58→21:52)
[2020-10-25] MEDS: ASCORBIC ACID 500 MG TABLET PO SCH ×2 (08:58→21:52)
[2020-10-25] MEDS: CHOLECALCIFEROL 1,000 UNIT TABLET PO SCH (08:58)
[2020-10-25] MEDS: SKIN HEALING OINT (AQUAPHOR) 50 GM TUBE TOP SCH (08:59)
[2020-10-25] MEDS: ZINC OXIDE PASTE 113 GM TUBE TOP SCH ×2 (08:59→21:52)
[2020-10-25] MEDS: LINEZOLID INJ 600 MG in PREMIX 1 EACH IV SCH ×2 (08:59→21:53)
[2020-10-25] MEDS: INSULIN LISPRO 100 UNIT/ML SUBCUT SCH ×4 (10:38→20:35)
[2020-10-25] MEDS: ACETAMINOPHEN 325 MG TABLET PO PRN (21:52)
[2020-10-26] MEDS: ALBUTEROL 0.63 MG/3 ML NEB RESP TX SCH ×4 (00:17→19:52)
[2020-10-26] MEDS: LEVOTHYROXINE 25 MCG TABLET PO SCH (05:39)
[2020-10-26 06:06] LABS: Basophils % 0.1 % (0.0-0.8); Eosinophils # 0.1 10*3/uL (0.0-0.87); Eosinophils % 1.6 % (0.00-10.9); Hematocrit 27.8 VOL% (35.7-47.0); Hemoglobin 9.2 GM/DL (12.0-16.0); Immature Granulocytes % 0.9 %; Immature Granulocytes Absolute 0.06 #; Lymphocytes # 0.8 10*3/uL (1.4-4.0); Lymphocytes % 11.8 % (21.3-54.2); Mean Corpuscular HGB Conc 33.1 GM/DL (32-36); Mean Corpuscular Volume 91.1 FL (87-102); Mean Platelet Volume 12.1 FL (9.6-12.0); Monocytes % 6.6 % (1.7-12.7); NRBC # 0.04 10*3/uL; Platelet Count 109 T/CUMM (130-400); Red Blood Count 3.05 MC/CUMM (3.8-5.5); Red Cell Distribution Width 17.5 % (9.3-17.3); White Blood Count 6.7 T/CUMM (4-12)
[2020-10-26 06:07] LABS: Calcium 8.5 MG/DL (8.5-10.1); Osmolality,Calculated 275.2 MOS/KG (273-304); Potassium 4.9 MMOL/L (3.5-5.1)
[2020-10-26] MEDS: INSULIN LISPRO 100 UNIT/ML SUBCUT SCH ×4 (08:37→22:37)
[2020-10-26] MEDS: MEGESTROL 400 MG/10 ML UDCUP PO SCH ×2 (09:42→21:24)
[2020-10-26] MEDS: NYSTATIN 500,000 UNIT/5 ML UDCUP SWISH/SWAL SCH ×4 (09:42→23:19)
[2020-10-26] MEDS: DOCUSATE SODIUM 100 MG/10 ML UDCUP PO SCH ×2 (09:42→21:24)
[2020-10-26] MEDS: CHOLECALCIFEROL 1,000 UNIT TABLET PO SCH (09:43)
[2020-10-26] MEDS: ASCORBIC ACID 500 MG TABLET PO SCH ×2 (09:43→21:25)
[2020-10-26] MEDS: METOPROLOL TARTRATE 25 MG TABLET PO SCH ×3 (09:43→21:25)
[2020-10-26] MEDS: APIXABAN 2.5 MG TABLET PO SCH ×2 (09:43→21:25)
[2020-10-26] MEDS: POTASSIUM CHLORIDE 20 MEQ TABLET PO SCH ×2 (09:43→21:25)
[2020-10-26] MEDS: LINEZOLID INJ 600 MG in PREMIX 1 EACH IV SCH (09:44)
[2020-10-26] MEDS: predniSONE 10 MG TABLET PO SCH (09:44)
[2020-10-26] MEDS: OMEPRAZOLE ODT 20 MG TABLET PER TUBE SCH (09:44)
[2020-10-26] MEDS: SKIN HEALING OINT (AQUAPHOR) 50 GM TUBE TOP SCH (09:47)
[2020-10-26] MEDS: ZINC OXIDE PASTE 113 GM TUBE TOP SCH ×2 (09:47→21:25)
[2020-10-27 05:25] LABS: Basophils % 0.1 % (0.0-0.8); Eosinophils # 0.1 10*3/uL (0.0-0.87); Eosinophils % 1.6 % (0.00-10.9); Hematocrit 29.6 VOL% (35.7-47.0); Hemoglobin 9.5 GM/DL (12.0-16.0); Immature Granulocytes Absolute 0.07 #; Lymphocytes # 0.8 10*3/uL (1.4-4.0); Lymphocytes % 10.7 % (21.3-54.2); Mean Corpuscular HGB Conc 32.1 GM/DL (32-36); Mean Corpuscular Volume 92.5 FL (87-102); Monocytes % 5.9 % (1.7-12.7); NRBC # 0.09 10*3/uL; Neutrophils % 80.7 % (38.7-73.9); Platelet Count 167 T/CUMM (130-400); Red Cell Distribution Width 17.2 % (9.3-17.3); White Blood Count 7.3 T/CUMM (4-12)
[2020-10-27] MEDS: LEVOTHYROXINE 25 MCG TABLET PO SCH (05:36)
[2020-10-27 06:00] LABS: Calcium 8.6 MG/DL (8.5-10.1); Osmolality,Calculated 282.7 MOS/KG (273-304); Potassium 4.6 MMOL/L (3.5-5.1)
[2020-10-27 06:46] LABS: Band Neutrophils 9 % (0-10); Eosinophils 1 % (0-10); Lymphocytes 8 % (20-55); Nucleated Red Blood Cells 4 (0-5); Platelet Estimate Normal; Segmented Neutrophils 78 % (50-85); Total Cells Counted 100
[2020-10-27 06:47] LABS: Anisocytosis Slight; Macrocytosis 1+
[2020-10-27] MEDS: ALBUTEROL 0.63 MG/3 ML NEB RESP TX SCH ×4 (07:05→19:37)
[2020-10-27] MEDS: MEGESTROL 400 MG/10 ML UDCUP PO SCH ×2 (08:21→21:10)
[2020-10-27] MEDS: DOCUSATE SODIUM 100 MG/10 ML UDCUP PO SCH ×2 (08:21→22:59)
[2020-10-27] MEDS: SKIN HEALING OINT (AQUAPHOR) 50 GM TUBE TOP SCH (08:21)
[2020-10-27] MEDS: NYSTATIN 500,000 UNIT/5 ML UDCUP SWISH/SWAL SCH ×4 (08:21→21:10)
[2020-10-27] MEDS: predniSONE 10 MG TABLET PO SCH (08:22)
[2020-10-27] MEDS: ZINC OXIDE PASTE 113 GM TUBE TOP SCH (08:22)
[2020-10-27] MEDS: CHOLECALCIFEROL 1,000 UNIT TABLET PO SCH (08:22)
[2020-10-27] MEDS: METOPROLOL TARTRATE 25 MG TABLET PO SCH ×3 (08:22→22:59)
[2020-10-27] MEDS: INSULIN LISPRO 100 UNIT/ML SUBCUT SCH ×4 (08:22→22:59)
[2020-10-27] MEDS: ASCORBIC ACID 500 MG TABLET PO SCH ×2 (08:22→21:10)
[2020-10-27] MEDS: POTASSIUM CHLORIDE 20 MEQ TABLET PO SCH ×2 (08:22→21:10)
[2020-10-27] MEDS: APIXABAN 2.5 MG TABLET PO SCH ×2 (08:22→21:10)
[2020-10-27] MEDS: OMEPRAZOLE ODT 20 MG TABLET PER TUBE SCH (08:23)
[2020-10-28] MEDS: ZINC OXIDE PASTE 113 GM TUBE TOP SCH ×3 (00:06→21:30)
[2020-10-28] MEDS: ALBUTEROL 0.63 MG/3 ML NEB RESP TX SCH ×4 (03:07→19:27)
[2020-10-28 05:34] LABS: Basophils % 0.5 % (0.0-0.8); Eosinophils # 0.1 10*3/uL (0.0-0.87); Eosinophils % 1.4 % (0.00-10.9); Hematocrit 26.4 VOL% (35.7-47.0); Hemoglobin 8.2 GM/DL (12.0-16.0); Immature Granulocytes % 1.2 %; Immature Granulocytes Absolute 0.08 #; Lymphocytes # 0.8 10*3/uL (1.4-4.0); Lymphocytes % 11.8 % (21.3-54.2); Mean Corpuscular HGB Conc 31.1 GM/DL (32-36); Mean Platelet Volume 10.7 FL (9.6-12.0); Monocytes % 6.6 % (1.7-12.7); NRBC # 0.04 10*3/uL; Neutrophils % 78.5 % (38.7-73.9); Platelet Count 149 T/CUMM (130-400); Red Blood Count 2.84 MC/CUMM (3.8-5.5); Red Cell Distribution Width 17.2 % (9.3-17.3); White Blood Count 6.5 T/CUMM (4-12)
[2020-10-28] MEDS: LEVOTHYROXINE 25 MCG TABLET PO SCH (05:48)
[2020-10-28 05:58] LABS: Calcium 8.6 MG/DL (8.5-10.1); Osmolality,Calculated 284.5 MOS/KG (273-304); Potassium 4.8 MMOL/L (3.5-5.1)
[2020-10-28 06:09] LABS: Band Neutrophils 1 % (0-10); Eosinophils 4 % (0-10); Hypochromasia 1+; Lymphocytes 20 % (20-55); Myelocytes 1 %; Segmented Neutrophils 72 % (50-85); Total Cells Counted 100
[2020-10-28 06:10] LABS: Anisocytosis 1+; Microcytosis 1+; Target Cells Slight
[2020-10-28] MEDS: INSULIN LISPRO 100 UNIT/ML SUBCUT SCH ×4 (08:24→22:07)
[2020-10-28] MEDS: CHOLECALCIFEROL 1,000 UNIT TABLET PO SCH (10:02)
[2020-10-28] MEDS: POTASSIUM CHLORIDE 20 MEQ TABLET PO SCH ×2 (10:03→21:27)
[2020-10-28] MEDS: APIXABAN 2.5 MG TABLET PO SCH ×2 (10:03→21:27)
[2020-10-28] MEDS: OMEPRAZOLE ODT 20 MG TABLET PER TUBE SCH (10:03)
[2020-10-28] MEDS: ASCORBIC ACID 500 MG TABLET PO SCH ×2 (10:03→21:27)
[2020-10-28] MEDS: METOPROLOL TARTRATE 25 MG TABLET PO SCH ×3 (10:03→22:07)
[2020-10-28] MEDS: predniSONE 10 MG TABLET PO SCH (10:03)
[2020-10-28] MEDS: NYSTATIN 500,000 UNIT/5 ML UDCUP SWISH/SWAL SCH ×4 (10:03→21:29)
[2020-10-28] MEDS: DOCUSATE SODIUM 100 MG/10 ML UDCUP PO SCH ×2 (10:03→22:07)
[2020-10-28] MEDS: SKIN HEALING OINT (AQUAPHOR) 50 GM TUBE TOP SCH (10:04)
[2020-10-28] MEDS: MEGESTROL 400 MG/10 ML UDCUP PO SCH ×2 (10:04→21:30)
[2020-10-29] MEDS: ALBUTEROL 0.63 MG/3 ML NEB RESP TX SCH ×4 (00:03→19:17)
[2020-10-29] MEDS: LEVOTHYROXINE 25 MCG TABLET PO SCH (06:11)
[2020-10-29 06:14] LABS: Basophils % 0.3 % (0.0-0.8); Eosinophils # 0.1 10*3/uL (0.0-0.87); Eosinophils % 1.4 % (0.00-10.9); Hematocrit 23.9 VOL% (35.7-47.0); Hemoglobin 7.6 GM/DL (12.0-16.0); Immature Granulocytes % 1.4 %; Lymphocytes # 0.9 10*3/uL (1.4-4.0); Lymphocytes % 11.8 % (21.3-54.2); Mean Corpuscular HGB Conc 31.8 GM/DL (32-36); Monocytes % 7.2 % (1.7-12.7); NRBC # 0.02 10*3/uL; Neutrophils % 77.9 % (38.7-73.9); Platelet Count 148 T/CUMM (130-400); Red Blood Count 2.57 MC/CUMM (3.8-5.5); White Blood Count 7.2 T/CUMM (4-12)
[2020-10-29 07:26] LABS: Anisocytosis 1+; Band Neutrophils 17 % (0-10); Hypochromasia 1+; Lymphocytes 10 % (20-55); Macrocytosis 1+; Myelocytes 1 %; Platelet Estimate Adequate; Segmented Neutrophils 68 % (50-85); Target Cells Few; Total Cells Counted 100
[2020-10-29] MEDS: DOCUSATE SODIUM 100 MG/10 ML UDCUP PO SCH ×2 (08:59→22:23)
[2020-10-29] MEDS: MEGESTROL 400 MG/10 ML UDCUP PO SCH ×2 (08:59→20:26)
[2020-10-29] MEDS: APIXABAN 2.5 MG TABLET PO SCH ×2 (09:00→20:24)
[2020-10-29] MEDS: NYSTATIN 500,000 UNIT/5 ML UDCUP SWISH/SWAL SCH ×4 (09:01→20:25)
[2020-10-29] MEDS: OMEPRAZOLE ODT 20 MG TABLET PER TUBE SCH (09:02)
[2020-10-29] MEDS: CHOLECALCIFEROL 1,000 UNIT TABLET PO SCH (09:04)
[2020-10-29] MEDS: INSULIN LISPRO 100 UNIT/ML SUBCUT SCH ×4 (09:07→22:24)
[2020-10-29] MEDS: METOPROLOL TARTRATE 25 MG TABLET PO SCH (09:09)
[2020-10-29] MEDS: ACETAMINOPHEN 325 MG TABLET PO PRN (09:09)
[2020-10-29] MEDS: ASCORBIC ACID 500 MG TABLET PO SCH ×2 (09:10→20:25)
[2020-10-29] MEDS: POTASSIUM CHLORIDE 20 MEQ TABLET PO SCH ×2 (09:10→20:25)
[2020-10-29] MEDS: predniSONE 10 MG TABLET PO SCH (09:10)
[2020-10-29] MEDS: ZINC OXIDE PASTE 113 GM TUBE TOP SCH (09:31)
[2020-10-29] MEDS: SKIN HEALING OINT (AQUAPHOR) 50 GM TUBE TOP SCH (09:31)
[2020-10-29] MEDS: traMADol 50 MG TABLET PEG PRN (14:23)
[2020-10-29] MEDS ORDERED: METOPROLOL SUCCINATE XL 50 MG TABLET PO ONE (15:39)
[2020-10-29] MEDS: DILTIAZEM 60 MG TABLET PO SCH (20:25)
[2020-10-29] MEDS ORDERED: METOPROLOL SUCCINATE XL 50 MG TABLET PO SCH (21:00)
[2020-10-30] MEDS: ALBUTEROL 0.63 MG/3 ML NEB RESP TX SCH ×4 (00:02→19:30)
[2020-10-30] MEDS: ZINC OXIDE PASTE 113 GM TUBE TOP SCH ×3 (01:42→21:27)
[2020-10-30] MEDS: LEVOTHYROXINE 25 MCG TABLET PO SCH (05:46)
[2020-10-30 06:33] LABS: Basophils # 0.1 10*3/uL (0.0-0.2); Basophils % 0.6 % (0.0-0.8); Eosinophils # 0.1 10*3/uL (0.0-0.87); Eosinophils % 1.5 % (0.00-10.9); Hematocrit 25.2 VOL% (35.7-47.0); Hemoglobin 8.1 GM/DL (12.0-16.0); Immature Granulocytes % 8.2 %; Immature Granulocytes Absolute 0.76 #; Lymphocytes % 10.5 % (21.3-54.2); Mean Corpuscular HGB Conc 32.1 GM/DL (32-36); Mean Platelet Volume 11.5 FL (9.6-12.0); Monocytes % 10.8 % (1.7-12.7); NRBC # 0.02 10*3/uL; Neutrophils % 68.4 % (38.7-73.9); Platelet Count 98 T/CUMM (130-400); Red Blood Count 2.68 MC/CUMM (3.8-5.5); Red Cell Distribution Width 16.9 % (9.3-17.3); White Blood Count 9.3 T/CUMM (4-12)
[2020-10-30 07:29] LABS: Anisocytosis 2+; Band Neutrophils 3 % (0-10); Eosinophils 1 % (0-10); Lymphocytes 20 % (20-55); Macrocytosis 1+; Microcytosis 1+; Promyelocytes 1 %; Segmented Neutrophils 75 % (50-85); Total Cells Counted 100
[2020-10-30 07:30] LABS: Atypical Lymphocytes Few; Hypochromasia Slight; Platelet Estimate Decreased; Reactive Lymphocytes Few; Schistocytes 1+
[2020-10-30] MEDS: INSULIN LISPRO 100 UNIT/ML SUBCUT SCH ×4 (08:34→21:27)
[2020-10-30] MEDS: APIXABAN 2.5 MG TABLET PO SCH ×2 (09:21→21:26)
[2020-10-30] MEDS: predniSONE 10 MG TABLET PO SCH (09:21)
[2020-10-30] MEDS: METOPROLOL TARTRATE 50 MG TABLET PO SCH ×2 (09:21→21:26)
[2020-10-30] MEDS: CHOLECALCIFEROL 1,000 UNIT TABLET PO SCH (09:22)
[2020-10-30] MEDS: POTASSIUM CHLORIDE 20 MEQ TABLET PO SCH ×2 (09:22→21:26)
[2020-10-30] MEDS: DILTIAZEM 60 MG TABLET PO SCH ×2 (09:22→21:25)
[2020-10-30] MEDS: traMADol 50 MG TABLET PEG PRN (09:23)
[2020-10-30] MEDS: NYSTATIN 500,000 UNIT/5 ML UDCUP SWISH/SWAL SCH ×4 (09:24→21:24)
[2020-10-30] MEDS: OMEPRAZOLE ODT 20 MG TABLET PER TUBE SCH (09:24)
[2020-10-30] MEDS: SKIN HEALING OINT (AQUAPHOR) 50 GM TUBE TOP SCH (09:24)
[2020-10-30] MEDS: ASCORBIC ACID 500 MG TABLET PO SCH ×2 (09:24→21:26)
[2020-10-30] MEDS: MEGESTROL 400 MG/10 ML UDCUP PO SCH ×2 (09:25→21:25)
[2020-10-30] MEDS: DOCUSATE SODIUM 100 MG/10 ML UDCUP PO SCH ×2 (09:25→21:25)
[2020-10-30] MEDS: methylPREDNISolone SOD SUC 40 MG/1 ML VIAL IV SCH ×2 (10:12→17:15)
[2020-10-30] MEDS: AZITHROMYCIN INJ 500 MG in SODIUM CHLORIDE 0.9% 250 ML IV SCH (10:15)
[2020-10-30 10:22] LABS: ABG Base Excess 4.1 MMOL/L (-2.5-2.5); ABG HCO3 28.1 MMOL/L (20-26); ABG PCO2 31.7 MM HG (35-48); ABG PH 7.534 (7.35-7.45); ABG TCO2 25.2 MMOL/L (23-27)
[2020-10-30 11:12] LABS: Calcium 8.3 MG/DL (8.5-10.1); Potassium 4.9 MMOL/L (3.5-5.1)
[2020-10-30 12:44] LABS: Troponin I < 0.015 NG/ML (0.00-0.045)
[2020-10-30] MEDS: MORPHINE 4 MG/1 ML VIAL IV PRN (13:26)
[2020-10-31] MEDS: ALBUTEROL 0.63 MG/3 ML NEB RESP TX SCH ×4 (00:51→20:06)
[2020-10-31] MEDS: methylPREDNISolone SOD SUC 40 MG/1 ML VIAL IV SCH ×3 (01:39→18:47)
[2020-10-31 05:34] LABS: Basophils % 0.2 % (0.0-0.8); Hematocrit 21.6 VOL% (35.7-47.0); Hemoglobin 6.9 GM/DL (12.0-16.0); Immature Granulocytes % 14.8 %; Immature Granulocytes Absolute 1.82 #; Lymphocytes # 1.4 10*3/uL (1.4-4.0); Lymphocytes % 11.1 % (21.3-54.2); Mean Corpuscular HGB Conc 31.9 GM/DL (32-36); Mean Corpuscular Volume 93.9 FL (87-102); Mean Platelet Volume 11.5 FL (9.6-12.0); Monocytes % 6.3 % (1.7-12.7); NRBC # 0.04 10*3/uL; Neutrophils % 67.6 % (38.7-73.9); Platelet Count 132 T/CUMM (130-400); Red Cell Distribution Width 16.7 % (9.3-17.3); White Blood Count 12.3 T/CUMM (4-12)
[2020-10-31 06:03] LABS: Atypical Lymphocytes Few; Band Neutrophils 8 % (0-10); Eosinophils 1 % (0-10); Hypochromasia 1+; Lymphocytes 12 % (20-55); Metamyelocytes 1 %; Myelocytes 4 %; Segmented Neutrophils 66 % (50-85); Total Cells Counted 100
[2020-10-31 06:04] LABS: Microcytosis 1+; Ovalocytes Slight
[2020-10-31 06:05] LABS: Platelet Estimate Adequate; Target Cells Slight
[2020-10-31] MEDS: LEVOTHYROXINE 25 MCG TABLET PO SCH (06:05)
[2020-10-31 06:07] LABS: Calcium 8.6 MG/DL (8.5-10.1); Osmolality,Calculated 287.5 MOS/KG (273-304); Potassium 5.2 MMOL/L (3.5-5.1)
[2020-10-31 08:25] LABS: Hematocrit 21.4 VOL% (35.7-47.0); Hemoglobin 6.8 GM/DL (12.0-16.0)
[2020-10-31] MEDS: ZINC OXIDE PASTE 113 GM TUBE TOP SCH ×2 (10:01→21:54)
[2020-10-31] MEDS: SKIN HEALING OINT (AQUAPHOR) 50 GM TUBE TOP SCH (10:01)
[2020-10-31] MEDS: NYSTATIN 500,000 UNIT/5 ML UDCUP SWISH/SWAL SCH ×4 (10:02→21:49)
[2020-10-31] MEDS: DOCUSATE SODIUM 100 MG/10 ML UDCUP PO SCH ×2 (10:02→23:51)
[2020-10-31] MEDS: MEGESTROL 400 MG/10 ML UDCUP PO SCH ×2 (10:02→21:49)
[2020-10-31] MEDS: DILTIAZEM 60 MG TABLET PO SCH (10:03)
[2020-10-31] MEDS: CHOLECALCIFEROL 1,000 UNIT TABLET PO SCH (10:03)
[2020-10-31] MEDS: APIXABAN 2.5 MG TABLET PO SCH ×2 (10:04→21:49)
[2020-10-31] MEDS: OMEPRAZOLE ODT 20 MG TABLET PER TUBE SCH (10:04)
[2020-10-31] MEDS: ASCORBIC ACID 500 MG TABLET PO SCH ×2 (10:04→21:49)
[2020-10-31] MEDS: INSULIN LISPRO 100 UNIT/ML SUBCUT SCH ×4 (10:04→23:51)
[2020-10-31] MEDS: METOPROLOL TARTRATE 50 MG TABLET PO SCH ×2 (10:04→21:49)
[2020-10-31] MEDS: AZITHROMYCIN INJ 500 MG in SODIUM CHLORIDE 0.9% 250 ML IV SCH (10:05)
[2020-10-31] MEDS: traMADol 50 MG TABLET PEG PRN (10:12)
[2020-10-31] MEDS ORDERED: TUBERCULIN SKIN TEST 0.1 ML SYRINGE INTRADERM ONE (17:10)
[2020-11-01] MEDS: ALBUTEROL 0.63 MG/3 ML NEB RESP TX SCH ×4 (00:12→19:52)
[2020-11-01] MEDS: DILTIAZEM 60 MG TABLET PO SCH ×2 (00:13→09:17)
[2020-11-01] MEDS: methylPREDNISolone SOD SUC 40 MG/1 ML VIAL IV SCH ×2 (03:33→17:35)
[2020-11-01 05:27] LABS: Basophils % 0.2 % (0.0-0.8); Hematocrit 22.1 VOL% (35.7-47.0); Immature Granulocytes % 10.3 %; Immature Granulocytes Absolute 1.99 #; Lymphocytes # 1.2 10*3/uL (1.4-4.0); Mean Corpuscular HGB Conc 31.7 GM/DL (32-36); Mean Corpuscular Volume 95.3 FL (87-102); Mean Platelet Volume 11.9 FL (9.6-12.0); Monocytes % 5.2 % (1.7-12.7); NRBC # 0.96 10*3/uL; Neutrophils % 78.3 % (38.7-73.9); Platelet Count 169 T/CUMM (130-400); Red Blood Count 2.32 MC/CUMM (3.8-5.5); Red Cell Distribution Width 16.6 % (9.3-17.3); White Blood Count 19.4 T/CUMM (4-12)
[2020-11-01] MEDS: LEVOTHYROXINE 25 MCG TABLET PO SCH (05:32)
[2020-11-01 05:50] LABS: Band Neutrophils 7 % (0-10); Hypochromasia 2+; Lymphocytes 8 % (20-55); Microcytosis 1+; Myelocytes 3 %; Nucleated Red Blood Cells 3 (0-5); Platelet Estimate Adequate; Segmented Neutrophils 79 % (50-85); Total Cells Counted 100
[2020-11-01] MEDS: NYSTATIN 500,000 UNIT/5 ML UDCUP SWISH/SWAL SCH ×3 (09:16→17:35)
[2020-11-01] MEDS: AZITHROMYCIN INJ 500 MG in SODIUM CHLORIDE 0.9% 250 ML IV SCH (09:16)
[2020-11-01] MEDS: MEGESTROL 400 MG/10 ML UDCUP PO SCH (09:16)
[2020-11-01] MEDS: INSULIN LISPRO 100 UNIT/ML SUBCUT SCH ×4 (09:17→22:51)
[2020-11-01] MEDS: ASCORBIC ACID 500 MG TABLET PO SCH (09:17)
[2020-11-01] MEDS: APIXABAN 2.5 MG TABLET PO SCH (09:17)
[2020-11-01] MEDS: OMEPRAZOLE ODT 20 MG TABLET PER TUBE SCH (09:17)
[2020-11-01] MEDS: METOPROLOL TARTRATE 50 MG TABLET PO SCH (09:18)
[2020-11-01] MEDS: CHOLECALCIFEROL 1,000 UNIT TABLET PO SCH (09:18)
[2020-11-01] MEDS: ZINC OXIDE PASTE 113 GM TUBE TOP SCH (09:18)
[2020-11-01] MEDS: SKIN HEALING OINT (AQUAPHOR) 50 GM TUBE TOP SCH (09:18)
[2020-11-01] MEDS: DOCUSATE SODIUM 100 MG/10 ML UDCUP PO SCH (10:55)
[2020-11-01] MEDS: traMADol 50 MG TABLET PEG PRN (16:45)
[2020-11-02] MEDS: ALBUTEROL 0.63 MG/3 ML NEB RESP TX SCH ×4 (01:28→20:05)
[2020-11-02] MEDS: DOCUSATE SODIUM 100 MG/10 ML UDCUP PO SCH ×3 (02:56→23:54)
[2020-11-02] MEDS: DILTIAZEM 60 MG TABLET PO SCH ×3 (02:56→21:48)
[2020-11-02] MEDS: METOPROLOL TARTRATE 50 MG TABLET PO SCH ×3 (02:56→21:49)
[2020-11-02] MEDS: APIXABAN 2.5 MG TABLET PO SCH ×3 (02:56→21:49)
[2020-11-02] MEDS: ASCORBIC ACID 500 MG TABLET PO SCH ×3 (02:57→21:49)
[2020-11-02] MEDS: MEGESTROL 400 MG/10 ML UDCUP PO SCH ×3 (02:57→21:48)
[2020-11-02] MEDS: NYSTATIN 500,000 UNIT/5 ML UDCUP SWISH/SWAL SCH ×5 (02:57→21:48)
[2020-11-02] MEDS: methylPREDNISolone SOD SUC 40 MG/1 ML VIAL IV SCH ×2 (05:39→17:29)
[2020-11-02] MEDS: LEVOTHYROXINE 25 MCG TABLET PO SCH (05:39)
[2020-11-02] MEDS: ZINC OXIDE PASTE 113 GM TUBE TOP SCH ×2 (05:46→09:58)
[2020-11-02 06:50] LABS: Basophils # 0.1 10*3/uL (0.0-0.2); Basophils % 0.6 % (0.0-0.8); Hematocrit 21.6 VOL% (35.7-47.0); Hemoglobin 6.7 GM/DL (12.0-16.0); Immature Granulocytes % 9.8 %; Immature Granulocytes Absolute 1.59 #; Lymphocytes # 1.5 10*3/uL (1.4-4.0); Lymphocytes % 9.1 % (21.3-54.2); Mean Corpuscular Volume 94.7 FL (87-102); Mean Platelet Volume 11.9 FL (9.6-12.0); Monocytes % 6.4 % (1.7-12.7); Neutrophils % 74.1 % (38.7-73.9); Platelet Count 156 T/CUMM (130-400); Red Blood Count 2.28 MC/CUMM (3.8-5.5); Red Cell Distribution Width 16.9 % (9.3-17.3); White Blood Count 16.2 T/CUMM (4-12)
[2020-11-02 07:27] LABS: Band Neutrophils 1 % (0-10); Hypochromasia 2+; Lymphocytes 6 % (20-55); Macrocytosis Slight; Nucleated Red Blood Cells 28 (0-5); Ovalocytes Slight; Platelet Estimate Adequate; Polychromasia Slight; Segmented Neutrophils 89 % (50-85); Total Cells Counted 100
[2020-11-02] MEDS ORDERED: SODIUM CHLORIDE 0.9% 1,000 ML IV PRN (07:32)
[2020-11-02] MEDS: INSULIN LISPRO 100 UNIT/ML SUBCUT SCH ×3 (09:56→17:28)
[2020-11-02] MEDS: CHOLECALCIFEROL 1,000 UNIT TABLET PO SCH (09:57)
[2020-11-02] MEDS: OMEPRAZOLE ODT 20 MG TABLET PER TUBE SCH (09:57)
[2020-11-02] MEDS: AZITHROMYCIN INJ 500 MG in SODIUM CHLORIDE 0.9% 250 ML IV SCH (09:58)
[2020-11-02] MEDS: SKIN HEALING OINT (AQUAPHOR) 50 GM TUBE TOP SCH (09:58)
[2020-11-02] MEDS: traMADol 50 MG TABLET PEG PRN ×2 (15:39→23:19)
[2020-11-02 19:40] LABS: Hematocrit 33.1 VOL% (35.7-47.0); Hemoglobin 10.5 GM/DL (12.0-16.0)
[2020-11-03] MEDS: INSULIN LISPRO 100 UNIT/ML SUBCUT SCH ×5 (00:05→20:52)
[2020-11-03] MEDS: ALBUTEROL 0.63 MG/3 ML NEB RESP TX SCH ×4 (00:45→21:20)
[2020-11-03 05:36] LABS: Basophils # 0.1 10*3/uL (0.0-0.2); Basophils % 0.4 % (0.0-0.8); Hematocrit 32.6 VOL% (35.7-47.0); Hemoglobin 10.3 GM/DL (12.0-16.0); Immature Granulocytes % 3.6 %; Immature Granulocytes Absolute 0.47 #; Lymphocytes # 0.5 10*3/uL (1.4-4.0); Lymphocytes % 3.9 % (21.3-54.2); Mean Corpuscular HGB Conc 31.6 GM/DL (32-36); Mean Corpuscular Volume 92.1 FL (87-102); Mean Platelet Volume 11.6 FL (9.6-12.0); Monocytes % 5.4 % (1.7-12.7); NRBC # 5.06 10*3/uL; Neutrophils % 86.7 % (38.7-73.9); Platelet Count 127 T/CUMM (130-400); Red Blood Count 3.54 MC/CUMM (3.8-5.5); Red Cell Distribution Width 17.3 % (9.3-17.3); White Blood Count 12.9 T/CUMM (4-12)
[2020-11-03] MEDS: ZINC OXIDE PASTE 113 GM TUBE TOP SCH ×3 (05:51→20:58)
[2020-11-03] MEDS: methylPREDNISolone SOD SUC 40 MG/1 ML VIAL IV SCH ×2 (05:51→17:04)
[2020-11-03] MEDS: LEVOTHYROXINE 25 MCG TABLET PO SCH (05:51)
[2020-11-03 06:00] LABS: Lymphocytes 4 % (20-55); Macrocytosis Slight; Nucleated Red Blood Cells 58 (0-5); Polychromasia Slight; Segmented Neutrophils 91 % (50-85); Total Cells Counted 100
[2020-11-03 06:24] LABS: Calcium 8.6 MG/DL (8.5-10.1); Osmolality,Calculated 295.4 MOS/KG (273-304); Potassium 4.5 MMOL/L (3.5-5.1)
[2020-11-03] MEDS: traMADol 50 MG TABLET PEG PRN (08:15)
[2020-11-03] MEDS: CHOLECALCIFEROL 1,000 UNIT TABLET PO SCH (08:15)
[2020-11-03] MEDS: DOCUSATE SODIUM 100 MG/10 ML UDCUP PO SCH ×2 (08:15→20:48)
[2020-11-03] MEDS: NYSTATIN 500,000 UNIT/5 ML UDCUP SWISH/SWAL SCH ×4 (08:15→20:48)
[2020-11-03] MEDS: APIXABAN 2.5 MG TABLET PO SCH ×2 (08:15→20:49)
[2020-11-03] MEDS: METOPROLOL TARTRATE 50 MG TABLET PO SCH ×2 (08:15→20:49)
[2020-11-03] MEDS: ASCORBIC ACID 500 MG TABLET PO SCH ×2 (08:15→20:49)
[2020-11-03] MEDS: MEGESTROL 400 MG/10 ML UDCUP PO SCH ×2 (08:15→20:48)
[2020-11-03] MEDS: SKIN HEALING OINT (AQUAPHOR) 50 GM TUBE TOP SCH (08:15)
[2020-11-03] MEDS: DILTIAZEM 60 MG TABLET PO SCH ×2 (08:15→20:48)
[2020-11-03] MEDS: OMEPRAZOLE ODT 20 MG TABLET PER TUBE SCH (08:15)
[2020-11-03] MEDS: ACETAMINOPHEN 325 MG TABLET PO PRN (08:15)
[2020-11-03] MEDS: AZITHROMYCIN INJ 500 MG in SODIUM CHLORIDE 0.9% 250 ML IV SCH (09:09)
[2020-11-04] MEDS: methylPREDNISolone SOD SUC 40 MG/1 ML VIAL IV SCH ×2 (05:40→17:48)
[2020-11-04] MEDS: LEVOTHYROXINE 25 MCG TABLET PO SCH (05:46)
[2020-11-04 06:55] LABS: Basophils % 0.2 % (0.0-0.8); Hematocrit 36.3 VOL% (35.7-47.0); Hemoglobin 11.3 GM/DL (12.0-16.0); Immature Granulocytes % 1.7 %; Immature Granulocytes Absolute 0.23 #; Lymphocytes # 0.6 10*3/uL (1.4-4.0); Lymphocytes % 4.5 % (21.3-54.2); Mean Corpuscular HGB Conc 31.1 GM/DL (32-36); Mean Platelet Volume 11.4 FL (9.6-12.0); Monocytes % 6.3 % (1.7-12.7); NRBC # 2.43 10*3/uL; Neutrophils % 87.3 % (38.7-73.9); Platelet Count 149 T/CUMM (130-400); Red Blood Count 3.86 MC/CUMM (3.8-5.5); Red Cell Distribution Width 18.2 % (9.3-17.3); White Blood Count 13.3 T/CUMM (4-12)
[2020-11-04 07:14] LABS: Calcium 8.8 MG/DL (8.5-10.1); Osmolality,Calculated 289.8 MOS/KG (273-304); Potassium 4.6 MMOL/L (3.5-5.1)
[2020-11-04 07:22] LABS: Band Neutrophils 3 % (0-10); Hypochromasia 1+; Lymphocytes 1 % (20-55); Microcytosis 1+; Nucleated Red Blood Cells 15 (0-5); Polychromasia Slight; Segmented Neutrophils 91 % (50-85); Total Cells Counted 100
[2020-11-04 07:23] LABS: Anisocytosis 1+; Ovalocytes Slight; Platelet Estimate Adequate
[2020-11-04] MEDS: ALBUTEROL 0.63 MG/3 ML NEB RESP TX SCH ×4 (07:30→19:20)
[2020-11-04] MEDS: INSULIN LISPRO 100 UNIT/ML SUBCUT SCH ×4 (10:03→20:30)
[2020-11-04] MEDS: SKIN HEALING OINT (AQUAPHOR) 50 GM TUBE TOP SCH (10:04)
[2020-11-04] MEDS: DOCUSATE SODIUM 100 MG/10 ML UDCUP PO SCH ×2 (10:05→20:26)
[2020-11-04] MEDS: ASCORBIC ACID 500 MG TABLET PO SCH ×2 (10:05→20:27)
[2020-11-04] MEDS: MEGESTROL 400 MG/10 ML UDCUP PO SCH ×2 (10:05→20:26)
[2020-11-04] MEDS: APIXABAN 2.5 MG TABLET PO SCH ×2 (10:05→20:27)
[2020-11-04] MEDS: DILTIAZEM 60 MG TABLET PO SCH ×2 (10:06→20:27)
[2020-11-04] MEDS: OMEPRAZOLE ODT 20 MG TABLET PER TUBE SCH (10:07)
[2020-11-04] MEDS: METOPROLOL TARTRATE 50 MG TABLET PO SCH ×2 (10:07→20:27)
[2020-11-04] MEDS: CHOLECALCIFEROL 1,000 UNIT TABLET PO SCH (10:07)
[2020-11-04] MEDS: NYSTATIN 500,000 UNIT/5 ML UDCUP SWISH/SWAL SCH ×4 (10:07→20:26)
[2020-11-04] MEDS: AZITHROMYCIN INJ 500 MG in SODIUM CHLORIDE 0.9% 250 ML IV SCH (10:10)
[2020-11-04] MEDS: ZINC OXIDE PASTE 113 GM TUBE TOP SCH ×2 (10:13→20:28)
[2020-11-04] MEDS: traMADol 50 MG TABLET PEG PRN (16:33)
[2020-11-04] MEDS: MORPHINE 4 MG/1 ML VIAL IV PRN (22:44)
[2020-11-05] MEDS: ALBUTEROL 0.63 MG/3 ML NEB RESP TX SCH ×4 (00:32→19:05)
[2020-11-05] MEDS: MORPHINE 4 MG/1 ML VIAL IV PRN ×3 (00:48→10:55)
[2020-11-05] MEDS: LEVOTHYROXINE 25 MCG TABLET PO SCH (06:26)
[2020-11-05] MEDS: methylPREDNISolone SOD SUC 40 MG/1 ML VIAL IV SCH ×2 (06:26→17:30)
[2020-11-05] MEDS: INSULIN LISPRO 100 UNIT/ML SUBCUT SCH ×4 (08:27→20:34)
[2020-11-05] MEDS: CHOLECALCIFEROL 1,000 UNIT TABLET PO SCH (08:28)
[2020-11-05] MEDS: NYSTATIN 500,000 UNIT/5 ML UDCUP SWISH/SWAL SCH ×4 (08:34→20:32)
[2020-11-05] MEDS: OMEPRAZOLE ODT 20 MG TABLET PER TUBE SCH (08:34)
[2020-11-05] MEDS: METOPROLOL TARTRATE 50 MG TABLET PO SCH ×2 (08:35→20:33)
[2020-11-05] MEDS: APIXABAN 2.5 MG TABLET PO SCH ×2 (08:35→20:32)
[2020-11-05] MEDS: ASCORBIC ACID 500 MG TABLET PO SCH ×2 (08:35→20:32)
[2020-11-05] MEDS: DOCUSATE SODIUM 100 MG/10 ML UDCUP PO SCH ×2 (08:35→20:32)
[2020-11-05] MEDS: SKIN HEALING OINT (AQUAPHOR) 50 GM TUBE TOP SCH (08:36)
[2020-11-05] MEDS: DILTIAZEM 60 MG TABLET PO SCH ×2 (08:38→20:33)
[2020-11-05] MEDS: MEGESTROL 400 MG/10 ML UDCUP PO SCH ×2 (08:59→20:32)
[2020-11-05] MEDS: ZINC OXIDE PASTE 113 GM TUBE TOP SCH ×2 (10:14→20:33)
[2020-11-05] MEDS: AZITHROMYCIN INJ 500 MG in SODIUM CHLORIDE 0.9% 250 ML IV SCH (10:16)
[2020-11-05] MEDS: traMADol 50 MG TABLET PEG PRN (12:31)
[2020-11-06] MEDS: ALBUTEROL 0.63 MG/3 ML NEB RESP TX SCH ×4 (00:48→19:40)
[2020-11-06] MEDS: MORPHINE 4 MG/1 ML VIAL IV PRN ×2 (03:03→11:09)
[2020-11-06] MEDS: methylPREDNISolone SOD SUC 40 MG/1 ML VIAL IV SCH ×2 (05:24→17:32)
[2020-11-06] MEDS: LEVOTHYROXINE 25 MCG TABLET PO SCH (06:18)
[2020-11-06] MEDS: INSULIN LISPRO 100 UNIT/ML SUBCUT SCH ×4 (07:45→21:07)
[2020-11-06] MEDS: SKIN HEALING OINT (AQUAPHOR) 50 GM TUBE TOP SCH (09:08)
[2020-11-06] MEDS: DILTIAZEM 60 MG TABLET PO SCH ×2 (09:09→21:05)
[2020-11-06] MEDS: DOCUSATE SODIUM 100 MG/10 ML UDCUP PO SCH ×2 (09:09→21:05)
[2020-11-06] MEDS: ZINC OXIDE PASTE 113 GM TUBE TOP SCH ×2 (09:09→21:06)
[2020-11-06] MEDS: METOPROLOL TARTRATE 50 MG TABLET PO SCH ×2 (09:10→21:06)
[2020-11-06] MEDS: OMEPRAZOLE ODT 20 MG TABLET PER TUBE SCH (09:10)
[2020-11-06] MEDS: MEGESTROL 400 MG/10 ML UDCUP PO SCH ×2 (09:10→21:06)
[2020-11-06] MEDS: NYSTATIN 500,000 UNIT/5 ML UDCUP SWISH/SWAL SCH ×4 (09:10→21:06)
[2020-11-06] MEDS: APIXABAN 2.5 MG TABLET PO SCH ×2 (09:10→21:06)
[2020-11-06] MEDS: ASCORBIC ACID 500 MG TABLET PO SCH ×2 (09:11→21:06)
[2020-11-06] MEDS: CHOLECALCIFEROL 1,000 UNIT TABLET PO SCH (09:11)
[2020-11-06] MEDS: AZITHROMYCIN INJ 500 MG in SODIUM CHLORIDE 0.9% 250 ML IV SCH (10:33)
[2020-11-07] MEDS: ALBUTEROL 0.63 MG/3 ML NEB RESP TX SCH ×4 (02:26→19:26)
[2020-11-07] MEDS: MORPHINE 4 MG/1 ML VIAL IV PRN ×3 (03:40→22:17)
[2020-11-07] MEDS: methylPREDNISolone SOD SUC 40 MG/1 ML VIAL IV SCH (05:23)
[2020-11-07] MEDS: LEVOTHYROXINE 25 MCG TABLET PO SCH (05:51)
[2020-11-07] MEDS: ZINC OXIDE PASTE 113 GM TUBE TOP SCH ×2 (08:30→22:52)
[2020-11-07] MEDS: SKIN HEALING OINT (AQUAPHOR) 50 GM TUBE TOP SCH (08:30)
[2020-11-07] MEDS: APIXABAN 2.5 MG TABLET PO SCH ×2 (09:58→22:16)
[2020-11-07] MEDS: DILTIAZEM 60 MG TABLET PO SCH ×2 (09:58→22:15)
[2020-11-07] MEDS: ASCORBIC ACID 500 MG TABLET PO SCH ×2 (09:59→22:15)
[2020-11-07] MEDS: CHOLECALCIFEROL 1,000 UNIT TABLET PO SCH (09:59)
[2020-11-07] MEDS: predniSONE 5 MG TABLET PO SCH (09:59)
[2020-11-07] MEDS: DOCUSATE SODIUM 100 MG/10 ML UDCUP PO SCH ×2 (09:59→22:13)
[2020-11-07] MEDS: OMEPRAZOLE ODT 20 MG TABLET PER TUBE SCH (09:59)
[2020-11-07] MEDS: METOPROLOL TARTRATE 50 MG TABLET PO SCH ×2 (09:59→22:16)
[2020-11-07] MEDS: NYSTATIN 500,000 UNIT/5 ML UDCUP SWISH/SWAL SCH ×4 (09:59→22:13)
[2020-11-07] MEDS: AZITHROMYCIN INJ 500 MG in SODIUM CHLORIDE 0.9% 250 ML IV SCH (11:43)
[2020-11-07] MEDS: INSULIN LISPRO 100 UNIT/ML SUBCUT SCH ×4 (11:54→22:16)
[2020-11-07] MEDS: ONDANSETRON 4 MG/2 ML VIAL IV PRN (22:16)
[2020-11-07] MEDS: ACETAMINOPHEN 325 MG TABLET PO PRN (22:16)
[2020-11-08] MEDS: ALBUTEROL 0.63 MG/3 ML NEB RESP TX SCH ×3 (00:54→11:48)
[2020-11-08 05:05] LABS: Basophils % 0.4 % (0.0-0.8); Eosinophils # 0.1 10*3/uL (0.0-0.87); Eosinophils % 1.1 % (0.00-10.9); Hematocrit 32.8 VOL% (35.7-47.0); Hemoglobin 10.3 GM/DL (12.0-16.0); Immature Granulocytes % 5.9 %; Immature Granulocytes Absolute 0.57 #; Lymphocytes # 0.6 10*3/uL (1.4-4.0); Lymphocytes % 6.4 % (21.3-54.2); Mean Corpuscular HGB Conc 31.4 GM/DL (32-36); Mean Corpuscular Volume 94.3 FL (87-102); Mean Platelet Volume 10.3 FL (9.6-12.0); Monocytes % 5.7 % (1.7-12.7); NRBC # 0.16 10*3/uL; Neutrophils % 80.5 % (38.7-73.9); Platelet Count 264 T/CUMM (130-400); Red Blood Count 3.48 MC/CUMM (3.8-5.5); Red Cell Distribution Width 17.8 % (9.3-17.3); White Blood Count 9.6 T/CUMM (4-12)
[2020-11-08 05:19] LABS: Calcium 8.4 MG/DL (8.5-10.1); Osmolality,Calculated 293.1 MOS/KG (273-304); Potassium 4.5 MMOL/L (3.5-5.1)
[2020-11-08 05:24] LABS: Lymphocytes 9 % (20-55); Nucleated Red Blood Cells 2 (0-5); Platelet Estimate Adequate; Segmented Neutrophils 86 % (50-85); Total Cells Counted 100
[2020-11-08 05:25] LABS: Hypochromasia 1+; Macrocytosis Slight; Polychromasia Slight
[2020-11-08] MEDS: MAGNESIUM SULF RIDER 2 GM in PREMIX 1 EACH IV PRN (05:48)
[2020-11-08] MEDS: LEVOTHYROXINE 25 MCG TABLET PO SCH (05:49)
[2020-11-08] MEDS: MORPHINE 4 MG/1 ML VIAL IV PRN ×2 (05:59→12:13)
[2020-11-08] MEDS: ONDANSETRON 4 MG/2 ML VIAL IV PRN (06:00)
[2020-11-08] MEDS: METOPROLOL TARTRATE 50 MG TABLET PO SCH (10:20)
[2020-11-08] MEDS: ASCORBIC ACID 500 MG TABLET PO SCH (10:20)
[2020-11-08] MEDS: predniSONE 5 MG TABLET PO SCH (10:20)
[2020-11-08] MEDS: APIXABAN 2.5 MG TABLET PO SCH (10:20)
[2020-11-08] MEDS: NYSTATIN 500,000 UNIT/5 ML UDCUP SWISH/SWAL SCH ×2 (10:20→19:44)
[2020-11-08] MEDS: DOCUSATE SODIUM 100 MG/10 ML UDCUP PO SCH (10:20)
[2020-11-08] MEDS: OMEPRAZOLE ODT 20 MG TABLET PER TUBE SCH (10:20)
[2020-11-08] MEDS: DILTIAZEM 60 MG TABLET PO SCH (10:20)
[2020-11-08] MEDS: ZINC OXIDE PASTE 113 GM TUBE TOP SCH (10:20)
[2020-11-08] MEDS: CHOLECALCIFEROL 1,000 UNIT TABLET PO SCH (10:20)
[2020-11-08] MEDS: AZITHROMYCIN INJ 500 MG in SODIUM CHLORIDE 0.9% 250 ML IV SCH (11:02)
[2020-11-08 11:14] VITALS: BP 100/69
[2020-11-08] MEDS: INSULIN LISPRO 100 UNIT/ML SUBCUT SCH (19:43)
[2020-11-08] MEDS: SKIN HEALING OINT (AQUAPHOR) 50 GM TUBE TOP SCH (19:44)
== END 2020-11-08 13:03 | disposition expired | DRG 70 ==
LOC: EDUNIT# → N.ED 20:26 → N.EDINP 20:26 → N.TELEN 10-10 01:16 → SUATTDRO 10-11 09:56 → N.CC 10-20 16:00 → N.3E 10-22 18:19
PROVIDERS: ADMIT Family Medicine; ATTEND Family Medicine
PROC: EGDWPEG (ICD-10-PCS; 2020-10-19 11:35)